=== PATIENT | male | born 1975 | race Caucasian/White ===

== ENCOUNTER 2021-10-13 21:10 | Emergency (ER) | payer OTHER, SELFPAY ==
[2021-10-13 21:10] VITALS: BP 109/77; PULSE 102; RESP 20; TEMP 38.8; O2SAT 94; BMI 35.5
--- NOTE | 2021-10-13 21:35 | RAD_ITS ---
EXAM: XR CHEST, 1 VIEW CLINICAL INDICATION: Positive Covid test with bilateral rales TECHNIQUE: Frontal view of the chest. This report was created using [employer] report generation technology. COMPARISON: None. FINDINGS: LUNGS AND PLEURAL SPACES: Bilateral multilobar pneumonia. No pneumothorax. No effusion. HEART: Unremarkable. Cardiac silhouette not enlarged. MEDIASTINUM: Fullness of the hilar regions may represent reactive adenopathy. No other abnormalities. BONES/JOINTS: Degenerative changes of the spine and acromioclavicular joints. SOFT TISSUES: Unremarkable. RAD/Chest 1 View (Portable) IMPRESSION: Bilateral multilobar pneumonia. Electronically Signed: Syed Ybarra MD at 22:47 EST Tel , Service support ,
--- NOTE | 2021-10-13 21:36 | EX.ED.DYSGE1 ---
HPI History of Present Illness Chief Complaint: Fever Detail of Chief Complaint: Fever, chills, dyspnea on exertion and positive Covid test this past week Informant: patient and spouse/S.O. Onset/Context/Timing Onset: Weeks (Onset of symptoms Thanksgiving. Patient states he had loss of taste and smell that time) Context: Sudden Onset Timing: Continuous Quality: Loss of taste and smell with upper respiratory symptoms, chills, myalgias a Current Severity: Mild Maximum Severity: Severe Worsened by: Nothing Relieved by: Nothing Associated Symptoms Associated Symptoms: Per HPI Narrative Narrative: Patient is a 46-year-old male with no significant past medical history who states his onset of symptoms was Thanksgiving. He states he initially lost taste or smell. He then had rhinorrhea, congestion and sore throat. Last several days he has had elevated temperature with shaking chills and total body aches. He had a Covid test performed at the urgent care which was positive. Patient states he did go to work on Monday. He denies smoking. Denies alcohol use. His spouse is with him. He denies history of VTE. He denies leg pain, swelling discoloration. Prior similar symptoms: No Recent Illness/Hospitalization: Yes PFSH PFSH Medical History no medical history Home Medications dexamethasone [Decadron] 6 mg PO DAILY #7 tab 10/13/21 [Rx Last Taken Unknown] Allergy/AdvReac Type Severity Reaction Status Date / Time No Known Allergies Allergy Verified 10/13/21 21:13 Surgical History no surgical history no surgical history Social History (Updated 10/13/21 @ 21:[address] Gera Zuniga MD) household members: spouse Smoking Status: Never smoker substance use type: does not use ROS ROS ED Constitutional Constitutional ED: Reports chills, fever(s) and sweats; Denies weight loss Eyes Eyes: Denies blurry vision, change in vision or diplopia ENT ENT ED: Reports rhinorrhea and sore throat; Denies ear pain Cardiovascular Cardiovascular: Denies chest pain, orthopnea, palpitations, paroxysmal nocturnal dyspnea or racing heartbeat Respiratory/Chest Respiratory/Chest: Reports cough, dyspnea and dyspnea on exertion; Denies orthopnea, paroxysmal nocturnal dyspnea or sputum Gastrointestinal Gastrointestinal: Reports abdominal pain, diarrhea, nausea and vomiting Genitourinary Genitourinary ED: Denies dysuria, hematuria or urinary frequency Musculoskeletal Musculoskeletal: Reports arthralgias and myalgias Integumentary Denies Abrasions or rash Neurologic Neurologic: Reports headache(s) and weakness; Denies paresthesias Endocrine Endocrinology: Denies polydipsia, polyphagia or polyuria EXAM Physical Exam Const Vital Signs: 10/13/21 21:10 Temperature 101.8 F H Temperature Source Oral Pulse Rate 102 H Respiratory Rate 20 H Blood Pressure 109/77 Blood Pressure Mean 87 Pulse Ox 94 Oxygen Delivery Method Room Air Positive well nourished, well developed and obese General Appearance ED: well developed and NAD; Negative for cyanotic, diaphoretic or pallor Nutritional Appearance: obese HEENT Reports dry mucous membranes Negative for trauma or tenderness Mouth ED: Yes dry mucous membranes Mouth: dry mucous membranes Eyes PERRL and EOMs intact bilaterally General Eye ED: Negative for pale conjunctiva or scleral icterus Neck no lymphadenopathy, supple and no JVD General: Negative for tenderness Chest Wall inspection of chest normal and palpation of chest normal Resp normal respiratory effort Auscultation: rales bilateral base Cardio regular rhythm, S1 normal heart sound, S2 normal heart sound and no murmurs Rate: tachycardic GI normal to inspection, nondistended, normoactive bowel sounds and non-tender Palpation: soft Back/Spine no CVA tenderness Cervical Spine: Negative for cervical spine tenderness Thoracic Spine / Upper Back: Negative for thoracic spinal tenderness or paraspinal muscle tenderness Extremity normal to inspection General Extremety ED: Negative for edema or tenderness General Extremity: Negative for edema Neuro oriented x3, CN's II-XII intact bilaterally and no sensory deficits noted Sensorium / Orientation: alert Motor Exam: strength 5/5 throughout Psych mental status grossly normal Skin no rashes or lesions noted and no wounds General Skin Exam: elasticity normal; Negative for jaundice or pallor MDM MDM MDM Narrative Medical decision making narrative: Patient has symptoms due to Covid. Clinically has pneumonia. Will obtain chest x-ray. Because he also reports vomiting with diarrhea basic metabolic panel was obtained to assess electrolytes and specifically potassium as well as renal function. Patient will receive a 500 cc bolus of normal saline. Lab Data Attestation: I reviewed the patient's lab results. Lab results narrative: CBC and basic metabolic panel are unremarkable except for a glucose of 145. Labs: Laboratory Results - last 24 hr 10/13/21 10/13/21 21:55 21:55 WBC 10.2 RBC 4.11 L Hgb 11.9 L Hct 34.7 L MCV 84.4 MCH 29.0 MCHC 34.3 RDW Std Deviation 36.3 RDW Coeff of Seth 12.0 Plt Count 357 MPV 10.0 Immature Gran % (Auto) 1.200 H Neut % (Auto) 85.8 H Lymph % (Auto) 7.0 L [place] % (Auto) 4.7 Eos % (Auto) 1.1 Baso % (Auto) 0.2 Absolute Neuts (auto) 8.7 H Absolute Lymphs (auto) 0.71 L Nucleated RBC % 0 Sodium 137 Potassium 4.3 Chloride 101 Carbon Dioxide 28.0 Anion Gap 8 BUN 18 Creatinine 1.17 Estim Creat Clear Calc 87.51 Est GFR (MDRD) Af Amer 87 Est GFR (MDRD) Non-Af 72 BUN/Creatinine Ratio 15.4 Glucose 145 H Calcium 8.5 Radiography Chest X-Ray - ED: 1 View (Single view portable chest x-ray reveals peripheral patchy bilateral multilobar infiltrates consistent with Covid. Cardiac silhouette size normal. Perihilar region unremarkable. Osseous structures unremarkable. Chest x-ray is interpreted by me at 2218.) Discharge Plan Triage Chief Complaint: Fever ED Provider: Gera Zuniga Dx/Rx/DC Orders Clinical Impression: Pneumonia due to 2019-nCoV, Acute hyperglycemia Instructions: Coronavirus Disease 2019 (COVID-19): Caring for Yourself or Others, ED Hyperglycemia New Susp Diabetes Prescriptions: New dexamethasone [Decadron] 6 mg tablet 6 mg PO DAILY Qty: 7 RF: 0 Primary Care Provider: Care Physician,No Primary Referrals: Gunnar Ya MD [STAFF PHYSICIAN] - 1-2 Weeks Care Physician,No Primary [Primary Care Provider] - Activity Restrictions/Additional Instructions: Your blood sugar is elevated. This will need to be checked in 1 to 2 weeks. Patient was given an excuse for work until October 18 Disposition Disposition: Home, Self Care
[2021-10-13 22:03] LABS: Absolute Lymphocyte Count 0.71 X10^3/uL (0.83-4.51); Absolute Neutrophil Count 8.7 X10^3/uL (2.0-7.7); Basophil# 0.02 X10^3/uL; Basophil% 0.2 % (0-1); Eosinophil# 0.11 X10^3/uL; Eosinophils% 1.1 % (0-5); Hematocrit 34.7 % (40-54); Hemoglobin 11.9 g/dL (13.0-16.5); Lymphocyte # 0.71 X10^3/ul (0.83-4.51); Mean Corp Hgb Conc 34.3 g/dL (32-36); Mean Corpuscular Volume 84.4 fL (80-94); Monocyte# 0.48 X10^3/uL; Monocyte% 4.7 % (0-10); NRBC Flagged by Analyzer 0 % (0-5); Neutrophil # 8.74 X10^3/uL (2.7-7.7); Neutrophil % 85.8 % (47-70); Platelet Count 357 K/mm3 (150-450); RBC Distribution Width SD 36.3 fl (35.1-43.9); Red Blood Count 4.11 M/mm3 (4.6-6.2); White Blood Count 10.2 K/mm3 (4.4-11.0)
[2021-10-13 22:37] LABS: Anion Gap 8 (5-15); BUN 18 mg/dL (7-18); BUN/Creat Ratio 15.4 RATIO (10-20); Calcium,Total 8.5 mg/dL (8.5-10.1); Chloride 101 mmol/L (98-107); Creatinine, Serum 1.17 mg/dL (0.70-1.30); EST Glomerular Filtration Rate 72 mL/min (>60); Est Glom Filt Rate - Afr Amer 87 mL/min (>60); Estimated Creatinine Clearance 87.51 ml/min; Glucose 145 mg/dL (74-106); Potassium 4.3 mmol/L (3.5-5.1); Sodium Level 137 mmol/L (136-145)
[2021-10-13] MEDS: dexAMETHasone 4 MG Tablet 6 MG PO (23:09)
[2021-10-13 23:13] VITALS: BP 136/72; PULSE 92; RESP 16; O2SAT 97
== END 2021-10-13 23:14 | disposition home or self-care (01) ==
PROVIDERS: Emergency Provider Emergency Medicine
DX: U07.1 COVID-19 (principal); J12.82 Pneumonia due to coronavirus disease 2019; R73.9 Hyperglycemia, unspecified; R11.10 Vomiting, unspecified; R19.7 Diarrhea, unspecified; E66.9 Obesity, unspecified
CPT/HCPCS: 71045; 80048; 85025; 96360; 99285; J7040; A4216

== ENCOUNTER 2021-12-13 09:56 | Outpatient (CLI) | payer OTHER, SELFPAY ==
[2021-12-13 12:19] LABS: Absolute Lymphocyte Count 1.92 X10^3/uL (0.83-4.51); Absolute Neutrophil Count 4.8 X10^3/uL (2.0-7.7); Basophil# 0.05 X10^3/uL; Basophil% 0.7 % (0-1); Eosinophil# 0.15 X10^3/uL; Hematocrit 41.9 % (40-54); Hemoglobin 13.9 g/dL (13.0-16.5); Lymphocyte # 1.92 X10^3/ul (0.83-4.51); Lymphocyte % 25.4 % (19-41); Mean Corp Hgb Conc 33.2 g/dL (32-36); Mean Corpuscular Hgb 28.7 pg (27.0-32.0); Mean Corpuscular Volume 86.6 fL (80-94); Mean Platelet Vol. 10.8 fl (6.2-12.0); Monocyte# 0.65 X10^3/uL; Monocyte% 8.6 % (0-10); NRBC Flagged by Analyzer 0 % (0-5); Neutrophil # 4.78 X10^3/uL (2.7-7.7); POSITIVE COUNT YES; Platelet Count 230 K/mm3 (150-450); RBC Distribution Width CV 13.3 % (11.6-14.6); Red Blood Count 4.84 M/mm3 (4.6-6.2); White Blood Count 7.6 K/mm3 (4.4-11.0)
[2021-12-13 12:31] LABS: Vitamin D,25 Hydroxy 13.1 ng/mL
[2021-12-13 12:35] LABS: ALB/GLOB Ratio 0.9 RATIO (0.9-2.4); AST(SGOT) 18 U/L (15-37); Alanine Aminotransfer ALT/SGPT 24 U/L (16-61); Albumin, Serum 3.5 g/dL (3.2-5.0); Alkaline Phosphatase 80 U/L (45-117); Anion Gap 5 (5-15); BUN 13 mg/dL (7-18); BUN/Creat Ratio 11.4 RATIO (10-20); Chloride 107 mmol/L (98-107); Cholesterol 186 mg/dL (200); Creatinine, Serum 1.14 mg/dL (0.70-1.30); EST Glomerular Filtration Rate 74 mL/min (>60); Est Glom Filt Rate - Afr Amer 89 mL/min (>60); Globulin 3.9 g/dL (2.2-4.2); Glucose 114 mg/dL (74-106); High Density Lipoprotein 36 mg/dL; PSA,Total - Annual Screen 0.82 ng/mL (0.00-4.00); Potassium 4.5 mmol/L (3.5-5.1); Protein, Total 7.4 g/dL (6.4-8.2); Sodium Level 138 mmol/L (136-145); Triglycerides 220 mg/dL; Very Low Density Lipoprotein 44 mg/dL (5-40)
[2021-12-13 12:40] LABS: Hemoglobin A1c 5.7 % (3.8-5.6)
== END 2021-12-13 23:59 | disposition home or self-care (01) ==
LOC: BIMLAB 09:56
PROVIDERS: PCP Internal Medicine; Referring Provider Internal Medicine; Visit Provider Internal Medicine
DX: R73.9 Hyperglycemia, unspecified (principal); E66.3 Overweight; Z13.1 Encounter for screening for diabetes mellitus; Z12.5 Encounter for screening for malignant neoplasm of prostate
CPT/HCPCS: 84153; 36415; 80053; 80061; 82306; 83036; 84443; 85025; G0103

== ENCOUNTER 2025-10-27 13:15 | Observation (INO) | payer OTHER, SELFPAY ==
[2025-10-27] VITALS (13 sets, daily range): BP systolic 102–144; BP diastolic 49–80; PULSE 59–109; RESP 16–18; TEMP 36.8–37.7; O2SAT 92–100; BMI 35.5; BMI 36.6
[2025-10-27 13:32] LABS: Hematocrit 45.8 % (40-54); Hemoglobin 15.4 g/dL (13.0-16.5); Immature Granulocytes Count 0.080 X10^3/uL (0.0-0.0); Mean Corp Hgb Conc 33.6 g/dL (32-36); Mean Corpuscular Volume 86.4 fL (80-94); Mean Platelet Vol. 10.0 fl (6.2-12.0); NRBC Flagged by Analyzer 0 % (0-5); Platelet Count 277 K/mm3 (150-450); RBC Distribution Width CV 12.4 % (11.6-14.6); RBC Distribution Width SD 38.9 fl (35.1-43.9); Red Blood Count 5.30 M/mm3 (4.6-6.2); White Blood Count 19.2 K/mm3 (4.4-11.0)
[2025-10-27 14:31] LABS: AST(SGOT) 18 U/L (<=37); Alanine Aminotransfer ALT/SGPT 21 U/L (<=46); Albumin, Serum 4.8 g/dL (3.5-5.0); Alkaline Phosphatase 70 U/L (40-129); Anion Gap 13 (7-18); BUN 17 mg/dL (4-19); BUN/Creat Ratio 14.7 RATIO (10-20); Calcium,Total 9.7 mg/dL (7.6-11.0); Carbon Dioxide 26.3 mmol/L (20.0-29.0); Chloride 101 mmol/L (96-106); Estimated Creatinine Clearance 103.19 ml/min (50-250); Globulin 3.2 g/dL (2.2-4.2); Glucose 164 mg/dL (70-99); Lipase 22 U/L (13-75); Potassium 4.4 mmol/L (3.5-5.1)
--- NOTE | 2025-10-27 17:13 | EX.ED.DYSGE1 ---
HPI History of Present Illness Chief Complaint: Abd Pain PFSH PFSH Medical History History of COVID-19 History of pneumonia Overweight Home Medications ?Medication ?Instructions ?Recorded ?Last Taken ?Type ibuprofen 200 mg capsule 200 mg PO Q6H PRN pain 07/16/23 Unknown History Allergy/AdvReac Type Severity Reaction Status Date / Time No Known Allergies Allergy Verified 10/27/25 13:19 Family History Other Arthritis Social History (Updated 10/27/25 @ 16:48 by Vicky Jalloh) household members: spouse housing: house Smoking Status: Never smoker alcohol intake: current alcohol intake frequency: holidays/special occasions only substance use type: does not use what type of physical activity do you participate in: none EXAM Physical Exam Const Vital Signs: 10/27/25 13:15 10/27/25 16:47 10/27/25 18:00 Temperature 98.4 F Temperature Source Oral Pulse Rate 59 L 90 Respiratory Rate 16 Blood Pressure 131/79 H 117/67 144/80 H Blood Pressure Mean 96 83 101 Blood Pressure Source Blood Pressure Position Blood Pressure Location Pulse Ox 98 100 Oxygen Delivery Method Room Air 10/27/25 19:35 Temperature 99.1 F Temperature Source Oral Pulse Rate 84 Respiratory Rate 18 Blood Pressure 120/70 Blood Pressure Mean 86 Blood Pressure Source Monitor Blood Pressure Position Semi-Fowlers Blood Pressure Location Right Arm Pulse Ox 95 Oxygen Delivery Method Room Air MDM MDM MDM Narrative Medical decision making narrative: HISTORY OF PRESENT ILLNESS: Chief complaint: Abdominal pain 50-year-old male history of obesity presents with abdominal pain. He states started having diffuse abdominal pain, small caliber stools yesterday. Notes he recently traveled to [place]. Denies new foods or antibiotics. Denies fever but does note vomiting. Denies diarrhea. No history of abdominal surgeries. No urinary complaints REVIEW OF SYSTEMS: Pertinent positives: Abdominal pain, vomiting Pertinent negatives: Fever, urinary complaints PHYSICAL EXAM: Nursing triage notes reviewed, Vital signs reviewed Constitutional: please see mdm HENT: MMM Eyes: Pupils equal round and reactive to light, Extraocular muscles intact Neck: No stridor, no JVD, full neck ROM Lungs: Clear to auscultation, No wheezing or rales. No increased work of breathing, no conversational dyspnea, no accessory muscle use, no nasal flaring. No respiratory distress noted Heart: Regular rate and rhythm, No murmurs, No rubs and No gallops, 2+ distal pulses (radial, femoral, posterior tibial) in all extremities Abdomen: Soft, diffuse TTP but no rigidity, rebound or guarding, no obvious peritoneal signs, no palpable pulsatile abdominal masses, no auscultated abdominal bruit : No CVAT Extremities: No edema Neuro: No new focal neurological deficits, cranial nerves II through XII intact, 5/5 strength in all present extremities. Intact sensation to light touch in all present extremities, 2+ reflexes bilateral patella tendons. Skin: No rash or lesions noted MEDICAL DECISION MAKING: Chief Complaint: please see HPI External records reviewed: Reviewed prior imaging Factors affecting care: n as per [facility] Social determinants of health:Denied alcohol use History obtained from others: none Consults: General surgery (Dr. Winslow) - [facility] Narrative: The patient was initially evaluated by myself 4 hours after initial arrival to the emergency department secondary to poor department conditions including high-volume high acuity Patient was initially hemodynamically stable, afebrile and nontoxic-appearing. Exam with diffuse abdominal tenderness but no obvious peritoneal signs I considered the following differential diagnosis: Abdominal pain differential I obtained broad lab and imaging workup to further determine if the patient was suffering from a life-threatening etiology. Triage labs were placed including CBC, CMP, lipase. These were reviewed Initially treat the patient with 1 L normal saline, 4 mg of IV Zofran, 15 mg IV Toradol and added a CT scan to triage workup ALL IMAGES (IF OBTAINED) HAVE BEEN PERSONALLY REVIEWED AND INTERPRETED BY MYSELF. CBC with concern for leukocytosis consistent with systemic elation, no anemia or thrombocytopenia noted CMP without evidence of acute kidney injury, significant electrolyte abnormality, anion gap to suggest end organ hypo-perfusion, no evidence of metabolic acidosis with a normal bicarbonate, no evidence of hepatobiliary obstructive pathology. Lipase is wnl indicating no pancreatic inflammation. CT scan revealed shows concerning signs of acute appendicitis. Will consult general surgeon Also recommend admission to the OR The patient and/or family, caregivers express understanding. The patient and/or family, caregivers agrees with the plan. Shared decision making: I will have a discussion with the patient and or visitors regarding risk/benefits of further testing or admission. They will be made aware of of the risk/benefits inherent in this decision they will be given the opportunity to voice understanding. Total critical care time today provided was at least 35 minutes. This excludes separately billable procedures. Critical care time (if documented) is secondary to the patient having high probability of clinically significant/life threatening deterioration in the patient's condition which required my urgent intervention. Impression: 1. Acute abdominal pain 2. Nausea and vomiting 3. Acute appendicitis Dispo: Admit to the OR This note was generated with [employer] dictation software. It may contain incorrect words, spelling, and punctuation that were not noted in review of the chart prior to signing. Lab Data Labs: Laboratory Results - last 24 hr 10/27/25 13:26 WBC 19.2 H RBC 5.30 Hgb 15.4 Hct 45.8 MCV 86.4 MCH 29.1 MCHC 33.6 RDW Std Deviation 38.9 RDW Coeff of Seth 12.4 Plt Count 277 MPV 10.0 Immature Gran % (Auto) 0.400 Neut % (Auto) 90.6 H Lymph % (Auto) 4.4 L [place] % (Auto) 4.4 Eos % (Auto) 0.0 Baso % (Auto) 0.2 Absolute Neuts (auto) 17.4 H Absolute Lymphs (auto) 0.85 Nucleated RBC % 0 Sodium 140 Potassium 4.4 Chloride 101 Carbon Dioxide 26.3 Anion Gap 13 BUN 17 Creatinine 1.12 Estim Creat Clear Calc 103.19 Est GFR (MDRD) Non-Af 81 BUN/Creatinine Ratio 14.7 Glucose 164 H Calcium 9.7 Total Bilirubin 0.73 AST 18 ALT 21 Alkaline Phosphatase 70 Total Protein 7.9 Albumin 4.8 Globulin 3.2 Albumin/Globulin Ratio 1.5 Lipase 22 Radiography Diagnostic Testing: Clinical Impression(s) from Imaging Studies Abdomen/Pelvis CT 10/27/25 17:29 IMPRESSION: Acute appendicitis. Reading [facility] [place] Discharge Plan Triage Chief Complaint: Abd Pain ED Provider: Elijah Carlos Dx/Rx/DC Orders Primary Care Provider: Care Physician,No Primary
--- NOTE | 2025-10-27 17:29 | CT_ITS ---
PROCEDURE: ABDOMEN/PELVIS W IV CONT ONLY 10/27/2025 REASON FOR EXAM: ABDOMINAL PAIN TECHNIQUE: Procedure Code: [id number] Modality: CT Procedure: ABDOMEN/PELVIS W IV CONT ONLY Coronal and Sagittal reconstruction series were provided. CONTRAST: Isovue-300 VOLUME: 99 mL One or more dose reduction techniques were used (e.g., Automated exposure control, adjustment of the mA and/or kV according to patient size, use of iterative reconstruction technique. RADIATION DOSE SUMMARY: CTDlvol: 24+ 23 mGy DLP: 1564 mGycm FINDINGS: Bibasilar linear opacities favoring atelectasis versus scar. Peripheral soft tissues unremarkable. No acute osseous abnormalities. Mild atherosclerosis. Normal caliber the abdominal aorta. No suspicious lymphadenopathy. The liver, gallbladder, pancreas, spleen, adrenals are unremarkable. Right kidney simple cyst. No hydroureteronephrosis. The urinary bladder is unremarkable. A few scattered colonic diverticuli without surrounding inflammatory changes. Appendiceal dilation measuring up to 17 mm with a couple internal appendicoliths. There is surrounding fat stranding. CT/Abdomen/Pelvis W IV Cont ONLY IMPRESSION: Acute appendicitis. Reading Location: [facility] [place]
[2025-10-27] MEDS: 0.9% Normal Saline (1000mL) 1,000 ML 999 ML IV (17:45)
[2025-10-27] MEDS: Piperacil/Tazobactam 4.5 GM in 0.9% Normal Saline (100mL MB+) 100 ML IV (18:45)
--- NOTE | 2025-10-27 19:27 | HP.PCM_ITS ---
HPI - General General Date of Admission: 10/27/25 Chief Complaint: Acute onset abdominal pain HPI Narrative SHIV TYSON, is a 50 M who presents to [facility] with complaints of acute onset abdominal pain with associated nausea, vomiting, and change in stool caliber. He notes that he recently traveled to [place] (yesterday) and has done some more eating out. He states that he simply did not feel well yesterday and had complained to his of some chills when they were in their hotel room despite the temperature being comfortable to her. He states that he was initially convinced he was just constipated because his stools had come out as ribbons (he confirmed this was nonbloody). However, approximately 1230 to 1:00 in the morning he woke with severe abdominal pain and when this continued he decided to seek evaluation. He denies any previous experience of such pain. Patient's ED evaluation included CBC which showed a leukocytosis of 19.2. CT imaging of the abdomen pelvis was obtained and found evidence for acute appendicitis with a 1.7 cm dilated appendix with associated appendicoliths and stranding. Patient admits to not frequently visiting a healthcare provider but denies any known diagnoses. He states that he has been making intentional effort at trying to eat healthier. He denies any prior surgical history. He also denies any prior colonoscopy. Patient has no family history for colon cancer, inflammatory bowel disease, or diverticulitis. [facility] Medical History History of COVID-19 History of pneumonia Overweight Home Medications ?Medication ?Instructions ?Recorded ?Last Taken ?Type ibuprofen 200 mg capsule 200 mg PO Q6H PRN 07/16/23 U nknown History Allergy/AdvReac Type Severity Reaction Status Date / Time No Known Allergies Allergy Verified 10/27/25 13:19 Family History Other Arthritis Social History (Updated 10/27/25 @ 16:48 by Vicky Jalloh) household members: spouse housing: house Smoking Status: Never smoker alcohol intake: current alcohol intake frequency: holidays/special occasions only substance use type: does not use what type of physical activity do you participate in: none Patient's Goals Of Care . What would you like to achieve or improve as a result of your hospital stay?: T his question was not posed to patient directly but I suppose his appendicitis Vital Signs Vital Signs Vital Signs: 10/27/25 13:15 10/27/25 16:47 10/27/25 18:00 Temperature 98.4 F Temperature Source Oral Pulse Rate 59 L 90 Respiratory Rate 16 Blood Pressure 131/79 H 117/67 144/80 H Blood Pressure Mean 96 83 101 Pulse Ox 98 100 Oxygen Delivery Method Room Air Weight Weight: 255 lb Body Mass Index (BMI) 35.5 Physical Exam Const alert, oriented x3 and well nourished Constitutional Narrative: Appears in mild discomfort General Appearance: cooperative Resp normal respiratory effort GI GI Narrative: Obese, no scars, small umbilical hernia visible. Nondistended, soft, tender focally over McBurney's point. Negative Rovsing's. Negative obturator. Positive psoas sign. Results Lab / Micro Data 10/27/25 13:26 10/27/25 13:26 Labs: Laboratory Results - last 24 hr 10/27/25 13:26: WBC 19.2 H, RBC 5.30, Hgb 15.4, Hct 45.8, MCV 86.4, MCH 29.1, MCHC 33.6, RDW Std Deviation 38.9, RDW Coeff of Seth 12.4, Plt Count 277, MPV 10.0, Immature Gran % (Auto) 0.400, Neut % (Auto) 90.6 H, Lymph % (Auto) 4.4 L, [place] % (Auto) 4.4, Eos % (Auto) 0.0, Baso % (Auto) 0.2, Absolute Neuts (auto) 17.4 H, Absolute Lymphs (auto) 0.85, Nucleated RBC % 0, Sodium 140, Potassium 4.4, Chloride 101, Carbon Dioxide 26.3, Anion Gap 13, BUN 17, Creatinine 1.12, Estim Creat Clear Calc 103.19, Est GFR (MDRD) Non-Af 81, BUN/Creatinine Ratio 14.7, Glucose 164 H, Calcium 9.7, Total Bilirubin 0.73, AST 18, ALT 21, Alkaline Phosphatase 70, Total Protein 7.9, Albumin 4.8, Globulin 3.2, Albumin/Globulin Ratio 1.5, Lipase 22 Imaging Radiology Impression Abdomen/Pelvis CT 10/27/25 17:29 IMPRESSION: Acute appendicitis. Reading Location: [facility] Assessment & Plan Assessment/Plan (1) Acute appendicitis: PLAN: Patient is 50-year-old male who presents just inside 24 hours of general malaise and acute onset abdominal pain beginning early this morning. ED workup consistent with diagnosis of acute appendicitis. Moreover, CT imaging shows a significantly dilated appendix at 1.7 cm with several associated appendicoliths. I informed patient that this latter feature puts him at increased risk for perforation and thus it is my recommendation to proceed emergently for surgical appendectomy. Laparoscopic appendectomy was described in detail. Patient provided his verbal consent. Operating team was notified via the household cook as well as anesthesia. Patient is n.p.o. appropriate. He has been administered IV Zosyn empirically by emergency medicine. Postoperatively we will plan to admit patient to medical surgical floor given the late hour for observation and hopefully be able to discharge to home in the morning. Patient was also advised that I would recommend a colonoscopy in approximately 6 weeks?especially if his bowel habits remain irregular?as he denies any prior exam. He confirms hearing of this recommendation but not necessarily agreement. I stated at a minimum I would strongly recommend he pursue Cologuard testing. For now we will proceed to the operating room for laparoscopic appendectomy. Allan Winslow MD General Surgery Endocrine Surgery Pager: [facility] [address] [place] [address], [address] [place], [place] [id number] Office: [phone] Charges/Coding Visit Charges Inpatient E&M: 23458 Init Hosp L2
--- NOTE | 2025-10-27 20:20 | APP_PTH ---
PATIENT: SHIV TYSON LOC: [facility]3 U#:[id number] AGE/SX: 50/M ROOM: AK318 RE10/27/[address]: Dr. Allan Winslow MD : 1975 BED: 1 DIS: 10/28/2025 SPEC #: [id number] RECD: 10/28/25 08:03 STATUS: ANITA HAGAN #: [id number] BLANCA: 10/27/25 20:[address]: Allan Winslow DEPT: SURGICAL PATHOLOGY RECD BY: Sailaja Bassett ENTERED: 10/28/25 13:47 SP TYPE: APPENDIX OTHR DR: No Primary Care Phys Tissues: Appendix, NOS Procedures: Surgery Specimen Level III HEADER OPERATION: Laparoscopic appendectomy PRE-OP DIAGNOSIS: Acute appendicitis TISSUE SUBMITTED: A- Appendix MICROSCOPIC DIAGNOSIS A. Appendix, laparoscopic appendectomy: - Acute appendicitis. - Fecalith x2. MICROSCOPIC DESCRIPTION Slides are reviewed. GROSS DESCRIPTION A. Received in formalin labeled with the patient's name and date of . Designated as appendix is a 7.4 x 1.2 cm floyd-pink to red, diffusely congested appendix with copious amount of attached mesoappendix; there is patchy serosal exudate spanning to the underlying mesoappendix. The margin is inked black and shaved. Sectioning reveals 2 fecaliths and hemorrhagic luminal contents. The mucosa is dark red-brown, diffusely congested and granular. [employer] Up [employer] sections are submitted in 2 cassettes as follows: A1: Margin, cross-sectionA2: Distal tip SD 10/28/2025 CPT:78102
--- NOTE | 2025-10-27 20:31 | PCM.PRE.AN2 ---
ASA Classification* ASA Classification ASA Classification: 2 and E Assessment & Plan Anesthesia* Anesthesia Assessment Anesthesia Assessment: Discussed sedation and/or anesthesia options, risks, benefits, and alternatives with patient/parents/legal guardian/POA. Questions invited. The patient/parents/legal guardian/POA seems to understand and agrees to proceed with anesthesia plan. Reviewed the physical assessment, medical history, allergy history and patient home medications list prior to surgery/procedure/anesthetic and documented any changes. Performed airway and anesthesia risk assessments. Anesthesia Type Anesthesia Type: General Anesthesia Focused Assessment* Temperature: 99.1 F Pulse Rate: 84 Blood Pressure: 120/70 Respiratory Rate: 18 Pulse Ox: 95 Airway Assessment Mouth opens: >3 cm Mallampati Score: II Labs Anesthesia Preop lab: CBC WBC, (4.4-11.0) 19.2 K/mm3 H Today, 13:26 RBC, (4.6-6.2) 5.30 M/mm3 Today, 13:26 Hgb, (13.0-16.5) 15.4 g/dL Today, 13:26 Hct, (40-54) 45.8 % Today, 13:26 Plt Count, (150-450) 277 K/mm3 Today, 13:26 CHEMISTRY Potassium, (3.5-5.1) 4.4 mmol/L Today, 13:26 Sodium, (135-145) 140 mmol/L Today, 13:26 BUN, (4-19) 17 mg/dL Today, 13:26 Creatinine, (0.70-1.20) 1.12 mg/dL Today, 13:26 Glucose, (70-99) 164 mg/dL H Today, 13:26 TSH, (0.358-3.74) 1.00 uIU/mL 12/13/21, 09:57 COAG Pre-Assessment Diagnosis/Proposed Procedure Planned Operative Procedure(s): Appendectomy Anesthesia History 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 When Was Last Pacemaker Check QUESTION #4 FULL TEXT: You/Your Family Experience fever (hyperthermia) with Anesthesia Last Oral Intake Last Oral intake: Last Oral Intake NPO since Meds taken in AM with sips of water? Meds patient instructed to take am of surgery PONV PONV - telegraph office telephone clerk: PONV - telegraph office telephone clerk Female HX of Motion Sickness HX of N/V After Surgery Non-Smoker Duration of Surgery greater than 60 minutes Number of Risk Factors PONV Score Height & Weight Height & Weight: Anesthesia: Height & Weight Height 5 ft 11 in 10/27/25 19:35 Weight: 115.666 kg 10/27/25 19:35 Body Mass Index (BMI) 35.5 10/27/25 19:35 Respiratory Assessment Respiratory Assessment - telegraph office telephone clerk: Respiratory Tract Infection Hx - telegraph office telephone clerk Hx Respiratory Tract Infection No 10/27/25 19:35 STOP Sleep Apnea STOP Sleep Apnea - telegraph office telephone clerk: STOP Sleep Apnea - telegraph office telephone clerk Hx Hypertension No 10/27/25 19:35 Hx Sleep Apnea No 10/27/25 19:35 CPAP BIPAP Do you snore loudly (louder Yes 10/27/25 19:35 than talking or can be heard Do you often feel tired/ No 10/27/25 19:35 fatigued/ sleepy during daytime? Has anyone observed you stop Yes 10/27/25 19:35 breathing during sleep? STOP Results Positive 10/27/25 19:35 QUESTION #5 FULL TEXT : Do you snore loudly (louder than talking or can be heard through closed doors)? Tobacco Use History Tobacco Use History - telegraph office telephone clerk: Tobacco Use History - telegraph office telephone clerk Tobacco Use Smoking Status Never smoker 10/27/25 16:47 Hx Tobacco Use Years Smoking Packs Smoked per Day Smoking Cessation Date was within the last 15 years Hx Smoking Cessation Date Hx Smoking Cessation Counseling Hematologic Medial History Hematologic Hx - telegraph office telephone clerk: Hematologic Medical Hx - cap blocker Hx of Blood Transfusion Hx of Transfusion in last 3 Months Date of Last Transfusion (if within last 3 months) Ever experience any problems with transfusion(s)? Specify any problems Hx of Preganancy in last 3 Months Nurse Filling Out Transfusion & Questions: Date: Time: Patient unable to answer at this time (ie. confused, unrespo /Reproduction History /Reproductive History - telegraph office telephone clerk: /Reproductive Hx- telegraph office telephone clerk Hx Now No 10/27/25 19:35 Gestational Age (in weeks): EDC: Hx Hx Para Hx Section SAB No 10/27/25 19:35 Does the father of the baby or his family experience fever w Father of the baby Malignant Hypertension history comment Active Medications Active Medications: Current Medications Generic Name Dose Route Start Last Admin Trade Name Freq PRN Reason Stop Dose Admin Morphine Sulfate 4 mg 10/27/25 18:21 Morphine 4 Mg/Ml Syringe IV PRN PRN severe pain PFSH Medical History History of COVID-19 History of pneumonia Overweight Home Medications ?Medication ?Instructions ?Recorded ?Last Taken ?Type ibuprofen 200 mg capsule 200 mg PO Q6H PRN pain 07/16/23 Unknown History Allergy/AdvReac Type Severity Reaction Status Date / Time No Known Allergies Allergy Verified 10/27/25 13:19 Family History Other Arthritis Social History (Updated 10/27/25 @ 16:48 by Vicky Jalloh) household members: spouse housing: house Smoking Status: Never smoker alcohol intake: current alcohol intake frequency: holidays/special occasions only substance use type: does not use what type of physical activity do you participate in: none Review of Systems (Anesthesia) ROS Narrative System reviewed and no additional complaints, except as documented.
[2025-10-27] MEDS: Midazolam 2 MG/2 ML Syringe IV (20:39)
[2025-10-27] MEDS: Lidocaine 1% (5 ml sdv) 5 ML Vial 4 ML IV (20:42)
[2025-10-27] MEDS: fentaNYL 100 MCG/2 ML Ampul IV (20:43)
--- OUTSIDE RECORDS SUMMARY | 2025-10-27 20:59 | XMS RPT_ITS | CCD ---
Author Organization [facility] Results Test Name Value Interpretation Reference Range Facility CBC W/Diff, Automatedon 02-0 -2021 Absolute Lymph 1.92 X10 3/uL Normal 0.83-4.51 [facility] Comment on above: Performed By: #### L 500.4100, L500.4050, L501.9985, L506.1000, L100.0100, L501.9910, L501.9520 #### [facility] [address] [place], [address] Absolute Neut 4.8 X10 3/uL Normal 2.0-7.7 [facility] Comment on above: Performed By: #### L 500.4100, L500.4050, L501.9985, L506.1000, L100.0100, L501.9910, L501.9520 #### [facility] [address] [place], [address] Basophils/100 WBC (Bld) 0.7 % Normal 0-1 [facility] Comment on above: Performed By: #### L 500.4100, L500.4050, L501.9985, L506.1000, L100.0100, L501.9910, L501.9520 #### [facility] [address] [place], [address] Eosinophils/100 WBC (Bld) 2.0 % Normal 0-5 [facility] Comment on above: Performed By: #### L 500.4100, L500.4050, L501.9985, L506.1000, L100.0100, L501.9910, L501.9520 #### [facility] [address] [place], [address] Erythrocyte distribution width (RBC) [Ratio] 13.3 % Normal 11.6-14.6 [facility] Comment on above: Performed By: #### L 500.4100, L500.4050, L501.9985, L506.1000, L100.0100, L501.9910, L501.9520 #### [facility] [address] [place], [address] Hematocrit (Bld) [Volume fraction] 41.9 % Normal 40-54 [facility] Comment on above: Performed By: #### L 500.4100, L500.4050, L501.9985, L506.1000, L100.0100, L501.9910, L501.9520 #### [facility] [address] [place], [address] Hemoglobin (Bld) [Mass/Vol] 13.9 g/dL Normal 13.0-16.5 [facility] Comment on above: Performed By: #### L 500.4100, L500.4050, L501.9985, L506.1000, L100.0100, L501.9910, L501.9520 #### [facility] [address] [place], [address] IG% 0.300 Normal 0.0-0.9 [facility] Comment on above: Result Comment: IG% - Immature Granulocytes (promyelocytes, myelocytes and metamyelocytes) > 1% indicates that a LEFT SHIFT is Present. Performed By: #### L 500.4100, L500.4050, L501.9985, L506.1000, L100.0100, L501.9910, L501.9520 #### [facility] [address] [place], [address] Lymphocytes/100 WBC (Bld) 25.4 % Normal 19-41 [facility] Comment on above: Performed By: #### L 500.4100, L500.4050, L501.9985, L506.1000, L100.0100, L501.9910, L501.9520 #### [facility] [address] [place], [address] MCH (RBC) [Entitic mass] 28.7 pg Normal 27.0-32.0 [facility] Comment on above: Performed By: #### L 500.4100, L500.4050, L501.9985, L506.1000, L100.0100, L501.9910, L501.9520 #### [facility] [address] [place], [address] MCHC (RBC) [Mass/Vol] 33.2 g/dL Normal 32-36 [facility] Comment on above: Performed By: #### L 500.4100, L500.4050, L501.9985, L506.1000, L100.0100, L501.9910, L501.9520 #### [facility] [address] [place], [address] MCV (RBC) [Entitic vol] 86.6 fL Normal 80-94 [facility] Comment on above: Performed By: #### L 500.4100, L500.4050, L501.9985, L506.1000, L100.0100, L501.9910, L501.9520 #### [facility] [address] [place], [address] Monocytes/100 WBC (Bld) 8.6 % Normal 0-10 [facility] Comment on above: Performed By: #### L 500.4100, L500.4050, L501.9985, L506.1000, L100.0100, L501.9910, L501.9520 #### [facility] [address] [place], [address] Neutrophils/100 WBC (Bld) 63.0 % Normal 47-70 [facility] Comment on above: Performed By: #### L 500.4100, L500.4050, L501.9985, L506.1000, L100.0100, L501.9910, L501.9520 #### [facility] [address] [place], [address] Nucleated RBC (Bld) [#/Vol] 0 10*3/uL Normal 0-5 [facility] Comment on above: Performed By: #### L 500.4100, L500.4050, L501.9985, L506.1000, L100.0100, L501.9910, L501.9520 #### [facility] [address] [place], [address] Platelet mean volume (Bld) [Entitic vol] 10.8 fL Normal 6.2-12.0 [facility] Comment on above: Performed By: #### L 500.4100, L500.4050, L501.9985, L506.1000, L100.0100, L501.9910, L501.9520 #### [facility] [address] [place], [address] Platelets (Bld) [#/Vol] 230 10*3/uL Normal 150-450 [facility] Comment on above: Performed By: #### L 500.4100, L500.4050, L501.9985, L506.1000, L100.0100, L501.9910, L501.9520 #### [facility] [address] [place], [address] RBC (Bld) [#/Vol] 4.84 10*6/uL Normal 4.6-6.2 [facility] Comment on above: Performed By: #### L 500.4100, L500.4050, L501.9985, L506.1000, L100.0100, L501.9910, L501.9520 #### [facility] [address] [place], [address] RDW SD 42.0 fl Normal 35.1-43.9 [facility] Comment on above: Performed By: #### L 500.4100, L500.4050, L501.9985, L506.1000, L100.0100, L501.9910, L501.9520 #### [facility] [address] [place], [address] WBC (Bld) [#/Vol] 7.6 10*3/uL Normal 4.4-11.0 [facility] Comment on above: Performed By: #### L 500.4100, L500.4050, L501.9985, L506.1000, L100.0100, L501.9910, L501.9520 #### [facility] [address] [place], [address] Comprehensive Metabolic Prof mton 12-13-2021 Albumin [Mass/Vol] 3.5 g/dL Normal 3.2-5.0 [facility] Comment on above: Performed By: #### L 500.4100, L500.4050, L501.9985, L506.1000, L100.0100, L501.9910, L501.9520 #### [facility] [address] [place], [address] Albumin/Globulin [Mass ratio] 0.9 {ratio} Normal 0.9-2.4 [facility] Comment on above: Performed By: #### L 500.4100, L500.4050, L501.9985, L506.1000, L100.0100, L501.9910, L501.9520 #### [facility] [address] [place], [address] ALK P 80 U/L Normal 45-117 [facility] Comment on above: Performed By: #### L 500.4100, L500.4050, L501.9985, L506.1000, L100.0100, L501.9910, L501.9520 #### [facility] [address] [place], [address] ALT [Catalytic activity/Vol] 24 U/L Normal 16-61 [facility] Comment on above: Performed By: #### L 500.4100, L500.4050, L501.9985, L506.1000, L100.0100, L501.9910, L501.9520 #### [facility] [address] [place], [address] AST [Catalytic activity/Vol] 18 U/L Normal 15-37 [facility] Comment on above: Performed By: #### L 500.4100, L500.4050, L501.9985, L506.1000, L100.0100, L501.9910, L501.9520 #### [facility] [address] [place], [address] Bilirubin [Mass/Vol] 0.70 mg/dL Normal 0.20-1.00 [facility] Comment on above: Result Comment: For patients on eltrombopag therapy, use of Dimension [place] TBIL is not recommended. Performed By: #### L 500.4100, L500.4050, L501.9985, L506.1000, L100.0100, L501.9910, L501.9520 #### [facility] [address] [place], [address] BUN/CRE 11.4 RATIO Normal 10-20 [facility] Comment on above: Performed By: #### L 500.4100, L500.4050, L501.9985, L506.1000, L100.0100, L501.9910, L501.9520 #### [facility] [address] [place], [address] CA,Total 9.0 mg/dL Normal 8.5-10.1 [facility] Comment on above: Performed By: #### L 500.4100, L500.4050, L501.9985, L506.1000, L100.0100, L501.9910, L501.9520 #### [facility] [address] [place], [address] Chloride [Moles/Vol] 107 mmol/L Normal 98-107 [facility] Comment on above: Performed By: #### L 500.4100, L500.4050, L501.9985, L506.1000, L100.0100, L501.9910, L501.9520 #### [facility] [address] [place], [address] CO2 [Moles/Vol] 26.0 mmol/L Normal 21.0-32.0 [facility] Comment on above: Performed By: #### L 500.4100, L500.4050, L501.9985, L506.1000, L100.0100, L501.9910, L501.9520 #### [facility] [address] [place], [address] Creatinine [Mass/Vol] 1.14 mg/dL Normal 0.70-1.30 [facility] Comment on above: Result Comment: The validity of the calculated GFR GFRAA in patients over 70 years has not been determined. Clinical correlation is essential. Performed By: #### L 500.4100, L500.4050, L501.9985, L506.1000, L100.0100, L501.9910, L501.9520 #### [facility] [address] [place], [address] EST GFR - AA 89 mL/min Normal >60 [facility] Comment on above: Result Comment: Afri can Moroccan GFR Calc Performed By: #### L 500.4100, L500.4050, L501.9985, L506.1000, L100.0100, L501.9910, L501.9520 #### [facility] [address] [place], [address] GAP 5 Normal 5-15 [facility] Comment on above: Performed By: #### L 500.4100, L500.4050, L501.9985, L506.1000, L100.0100, L501.9910, L501.9520 #### [facility] [address] [place], [address] GFR/1.73 sq M.predicted among non-blacks MDRD (S/P/Bld) [Vol rate/Area] 74 mL/min/{1.73_m2} Normal >60 [facility] Comment on above: Result Comment: Non- GFR Calc Performed By: #### L 500.4100, L500.4050, L501.9985, L506.1000, L100.0100, L501.9910, L501.9520 #### [facility] [address] [place], [address] Globulin (S) [Mass/Vol] 3.9 g/dL Normal 2.2-4.2 [facility] Comment on above: Performed By: #### L 500.4100, L500.4050, L501.9985, L506.1000, L100.0100, L501.9910, L501.9520 #### [facility] [address] [place], [address] Glucose [Mass/Vol] 114 mg/dL High 74-106 [facility] Comment on above: Result Comment: Fast ing Glucose result from 100 to 125 mg/dL suggests IMPAIRED HOMEOSTASIS per A.D.A. criteria. Performed By: #### L 500.4100, L500.4050, L501.9985, L506.1000, L100.0100, L501.9910, L501.9520 #### [facility] [address] [place], [address] Potassium [Moles/Vol] 4.5 mmol/L Normal 3.5-5.1 [facility] Comment on above: Performed By: #### L 500.4100, L500.4050, L501.9985, L506.1000, L100.0100, L501.9910, L501.9520 #### [facility] [address] [place], [address] Sodium [Moles/Vol] 138 mmol/L Normal 136-145 [facility] Comment on above: Performed By: #### L 500.4100, L500.4050, L501.9985, L506.1000, L100.0100, L501.9910, L501.9520 #### [facility] [address] [place], [address] T PROT 7.4 g/dL Normal 6.4-8.2 [facility] Comment on above: Performed By: #### L 500.4100, L500.4050, L501.9985, L506.1000, L100.0100, L501.9910, L501.9520 #### [facility] [address] [place], [address] Urea nitrogen [Mass/Vol] 13 mg/dL Normal 7-18 [facility] Comment on above: Performed By: #### L 500.4100, L500.4050, L501.9985, L506.1000, L100.0100, L501.9910, L501.9520 #### [facility] [address] [place], [address] Hemoglobin A1con 12-13-2021 HbA1c (Bld) [Mass fraction] 5.7 % High 3.8-5.6 [facility] Comment on above: Result Comment: Norm al < 5.7 % Prediabetic 5.7 - 6.4 % Diabetic >or= 6.5 % Please note range changes. Performed By: #### L 500.4100, L500.4050, L501.9985, L506.1000, L100.0100, L501.9910, L501.9520 #### [facility] [address] [place], [address] Internal Medicine Office Vis iton 12-13-2021 Internal Medicine Office Visit [facility] [address] [place] [address] [place] [address] OFFICE VISIT Date of Service: 12/13/21 MR#: [id number] Acct: [id number] Name: SHIV TYSON Rep #: [id number] : 1975 Provider: Dr. Vilma ramos MD Age/Sex: 46/M [place] [facility] [place] Status: Signed Intake Vital Signs 12/13/21 08:51 Height 5 ft 11 in Weight: 259 lb BMI 36.1 BP 120/82 H Blood Pressure Location Lt brachial Position Sitting Respiration 16 Pulse 59 L Pulse Source Monitor Temp 97.5 F L Temp Source Temporal Pulse Oximetry (%) 94 Oxygen Delivery Method room air Intake Visit Reasons: est care Chief Complaint: Establish care Is patient in pain?: No Allergies No Known Allergies Allergy (Verified 12/13/21 08:56) [facility] Medical History (Updated 12/13/21 @ 11:[address] Vilma Potts MD) History of COVID-19 History of pneumonia Overweight Family History (Updated 12/13/21 @ 08:58 by Kira Iraheta) Other Arthritis Social History (Updated 12/13/21 @ 08:58 by Kira Iraheta) household members: spouse Smoking Status: Never smoker alcohol intake: current alcohol intake frequency: holidays/special occasions only substance use type: does not use what type of physical activity do you participate in: none HPI HPI Chief Complaint: Establish care Details: SHIV TYSON, is a 46 M who presents to the office today to establish medical care/wellness visit. Patient is a pleasant 46-year-old male. He has no longstanding medical problems takes no routine long-term medications. Originally from [place], has lived in this area, [place], for about 11 years he states. 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 He is out Monday through Monday, and sleeps in his truck when he is on the road. He generally speaking, drives during the day and does his deliveries and sleeps at night. At times he is done better he states with meals on the road, sometimes taking some foods with him but self-admittedly mostly eats 1 meal a day and at a much heavier meal, often late evening prior to going to bed. Said a number of years ago he was more physically active, doing some running but he has not been doing that for a while. He is thinking about taking bicycle with in the future, as there are several stops where he feels he could probably safely do bicycle riding in the evenings. He is a lifelong non-smoker. Rare alcohol use. No strong family medical history of any medical issues. He did have COVID-19, towards the end of September and early October. He developed pneumonia. He did come the emergency room where he was identified to have bilateral patchy infiltrates and was given Decadron for home. He gradually improved. He is back to his routine at this point in time. He did have some leg swelling with that and still has perhaps a trace swelling in his legs he states and some anterior reddy tenderness. He also has a scalp lump he wanted looked at. Its been present for many years. Not causing any issues he states. He does cut his own hair and this does not impede it. Has never bled. Review of systems per chart. Physical exam. Vital signs on chart. EOMI. PERRLA. Sclera are clear. TMs are unremarkable with normal light reflexes. Canals are unremarkable. Posterior pharynx is unremarkable. Good dentition. No cervical or supraclavicular lymph nodes enlarged or tender. No clear thyromegaly. No thyroid nodules readily palpable. Lungs are without wheeze, rhonchi, rales. No E/A changes are heard. Heart is regular. Not tachycardic. No clear murmur, rub, or gallop is identified. The abdomen is soft, obese, protuberant. Bowel sounds are present. Nontender nondistended abdomen. No clear palpable masses in the abdomen. Very trace lower leg edema, symmetric. Cranial nerve examination 2 through 12 are grossly unremarkable nonlateralizing. Deep tendon reflexes are 2/4 and symmetric at the bicep, tricep, Achilles, patella. No ankle clonus. No obvious rashes. No obvious significant skin lesions are identified. He does have a sebaceous skin cyst, scalp, right parietal. ROS Const Constitutional: No body ache, chills, excessive sweating, fatigue, fever(s), frequent falls, headache(s), snoring, weakness, weight change, sleep problems or change in appetite Eyes Eyes: No blurry vision, change in vision, eye pain or Light sensitivity ENT ENT: No abnormal hearing, ear or mastoid pain, tinnitus, nasal congestion, headache(s), neck pain or sore throat Resp Respiratory: No cough, shortness of breath, snoring or wheezing Cardio Cardiology: No chest pain at rest, chest pain with exertion, excessive sweating, shortness of breath, dyspnea on exertion, lightheadedness, orthopnea or palpitations Gastro GI: No abdominal pain, change in bowel habits, constip (more content not included)... Normal [facility] Lipid Profileon 12-13-2021 Cholesterol [Mass/Vol] 186 mg/dL Normal 200 [facility] Comment on above: Result Comment: <200 mg/dL Desirable 200-240 mg/dL Borderline >240 mg/dL High Risk Performed By: #### L 500.4100, L500.4050, L501.9985, L506.1000, L100.0100, L501.9910, L501.9520 #### [facility] [address] [place], [address] Cholesterol in HDL [Mass/Vol] 36 mg/dL Low [facility] Comment on above: Result Comment: The drugs N-Acetylcysteine and Metamizole may falsely depress this assay. Reference Range HDL <40 mg/dL Low HDL Cholesterol HDL >or= 60 mg/dL High HDL Cholesterol Performed By: #### L 500.4100, L500.4050, L501.9985, L506.1000, L100.0100, L501.9910, L501.9520 #### [facility] [address] [place], [address] Cholesterol in LDL [Mass/Vol] 106 mg/dL Normal 0-130 [facility] Comment on above: Performed By: #### L 500.4100, L500.4050, L501.9985, L506.1000, L100.0100, L501.9910, L501.9520 #### [facility] [address] [place], [place], [id number] Cholesterol in VLDL [Mass/Vol] 44 mg/dL High 5-40 [facility] Comment on above: Performed By: #### L 500.4100, L500.4050, L501.9985, L506.1000, L100.0100, L501.9910, L501.9520 #### [facility] [address] [place], [place], [id number] ([phone]) Triglyceride [Mass/Vol] 220 mg/dL High [facility] Comment on above: Result Comment: The drugs N-Acetylcysteine and Metamizole may falsely depress this assay. Serum Triglycerides Reference Interval Normal <150 mg/dL Borderline high 150 - 199 mg/dL High 200 - 499 mg/dL Very High > or = 500 mg/dL Performed By: #### L 500.4100, L500.4050, L501.9985, L506.1000, L100.0100, L501.9910, L501.9520 #### [facility] [address] [place], [place], [id number] PSA,Total - Annual Screenon 12-13-2021 PSA,TOT SCREEN 0.82 ng/mL Normal 0.00-4.00 [facility] Comment on above: Result Comment: This test was performed using the TPSA assay method for the [employer] chemistry system. Values obtained with different assay methods cannot be used interchangably. When changing PSA assays in the course of monitoring a patient, additional sequential testing should be carried out to confirm baseline values. Performed By: #### L 500.2500, L100.0100 #### [facility] [address] [place], [place], [id number] Thyroid Stim Hormone (TSH)on 12-13-2021 TSH 1.00 uIU/mL Normal 0.358-3.74 [facility] Comment on above: Performed By: #### L 500.2500, L100.0100 #### [facility] [address] [place], [address] Vitamin D,25 Hydroxyon 12-13 Vitamin D 25-OH 13.1 ng/mL Normal [facility] Comment on above: Result Comment: Usha min D 25(OH) Status Range Deficiency <20 ng/mL (50nmol/L) Insufficiency 20 - 30 ng/mL (50 - 75 nmol/L) Sufficiency 30 - 100 ng/mL (75 - 250 nmol/L) Toxicity >100 ng/mL (>250 nmol/L) Performed By: #### L 500.4100, L500.4050, L501.9985, L506.1000, L100.0100, L501.9910, L501.9520 #### [facility] [address] [place], [address] Basic Metabolic Profile (BMP )on 10-14-2021 BUN/CRE 15.4 RATIO Normal 10-20 [facility] Comment on above: Performed By: #### L 500.2500, L100.0100 #### [facility] [address] [place], [address] CA,Total 8.5 mg/dL Normal 8.5-10.1 [facility] Comment on above: Performed By: #### L 500.2500, L100.0100 #### [facility] [address] [place], [address] Chloride [Moles/Vol] 101 mmol/L Normal 98-107 [facility] Comment on above: Performed By: #### L 500.2500, L100.0100 #### [facility] [address] [place], [address] CO2 [Moles/Vol] 28.0 mmol/L Normal 21.0-32.0 [facility] Comment on above: Performed By: #### L 500.2500, L100.0100 #### [facility] [address] [place], [address] Creatinine [Mass/Vol] 1.17 mg/dL Normal 0.70-1.30 [facility] Comment on above: Result Comment: The validity of the calculated GFR GFRAA in patients over 70 years has not been determined. Clinical correlation is essential. Performed By: #### L 500.2500, L100.0100 #### [facility] [address] [place], [address] ECRCL 87.51 ml/min Normal [facility] Comment on above: Performed By: #### L 500.2500, L100.0100 #### [facility] [address] [place], [address] EST GFR - AA 87 mL/min Normal >60 [facility] Comment on above: Result Comment: Afri can Moroccan GFR Calc Performed By: #### L 500.2500, L100.0100 #### [facility] [address] [place], [address] GAP 8 Normal 5-15 [facility] Comment on above: Performed By: #### L 500.2500, L100.0100 #### [facility] [address] [place], [address] GFR/1.73 sq M.predicted among non-blacks MDRD (S/P/Bld) [Vol rate/Area] 72 mL/min/{1.73_m2} Normal >60 [facility] Comment on above: Result Comment: Non- GFR Calc Performed By: #### L 500.2500, L100.0100 #### [facility] [address] [place], [address] Glucose [Mass/Vol] 145 mg/dL High 74-106 [facility] Comment on above: Result Comment: Fast ing Glucose result greater than or equal to 126 mg/dL suggests DIABETES MELLITUS per A.D.A. criteria. Please note revised GLUCOSE reference range effective 2017. Performed By: #### L 500.2500, L100.0100 #### [facility] [address] [place], [address] Potassium [Moles/Vol] 4.3 mmol/L Normal 3.5-5.1 [facility] Comment on above: Result Comment: Mode rate Hemolysis, Result may be falsely increased. Performed By: #### L 500.2500, L100.0100 #### [facility] [address] [place], [address] Sodium [Moles/Vol] 137 mmol/L Normal 136-145 [facility] Comment on above: Performed By: #### L 500.2500, L100.0100 #### [facility] [address] [place], [address] Urea nitrogen [Mass/Vol] 18 mg/dL Normal 7-18 [facility] Comment on above: Performed By: #### L 500.2500, L100.0100 #### [facility] [address] [place], [address] CBC W/Diff, Automatedon 12-0 Absolute Lymph 0.71 X10 3/uL Low 0.83-4.51 [facility] Comment on above: Performed By: #### L 500.2500, L100.0100 #### [facility] [address] [place], [address] Absolute Neut 8.7 X10 3/uL High 2.0-7.7 [facility] Comment on above: Performed By: #### L 500.2500, L100.0100 #### [facility] [address] [place], [address] Basophils/100 WBC (Bld) 0.2 % Normal 0-1 [facility] Comment on above: Performed By: #### L 500.2500, L100.0100 #### [facility] [address] [place], [address] Eosinophils/100 WBC (Bld) 1.1 % Normal 0-5 [facility] Comment on above: Performed By: #### L 500.2500, L100.0100 #### [facility] [address] [place], [address] Erythrocyte distribution width (RBC) [Ratio] 12.0 % Normal 11.6-14.6 [facility] Comment on above: Performed By: #### L 500.2500, L100.0100 #### [facility] [address] [place], [address] Hematocrit (Bld) [Volume fraction] 34.7 % Low 40-54 [facility] Comment on above: Performed By: #### L 500.2500, L100.0100 #### [facility] [address] [place], [address] Hemoglobin (Bld) [Mass/Vol] 11.9 g/dL Low 13.0-16.5 [facility] Comment on above: Performed By: #### L 500.2500, L100.0100 #### [facility] [address] [place], [address] IG% 1.200 High 0.0-0.9 [facility] Comment on above: Result Comment: IG% - Immature Granulocytes (promyelocytes, myelocytes and metamyelocytes) > 1% indicates that a LEFT SHIFT is Present. Performed By: #### L 500.2500, L100.0100 #### [facility] [address] [place], [address] Lymphocytes/100 WBC (Bld) 7.0 % Low 19-41 [facility] Comment on above: Performed By: #### L 500.2500, L100.0100 #### [facility] [address] [place], [address] MCH (RBC) [Entitic mass] 29.0 pg Normal 27.0-32.0 [facility] Comment on above: Performed By: #### L 500.2500, L100.0100 #### [facility] [address] [place], [address] MCHC (RBC) [Mass/Vol] 34.3 g/dL Normal 32-36 [facility] Comment on above: Performed By: #### L 500.2500, L100.0100 #### [facility] [address] [place], [address] MCV (RBC) [Entitic vol] 84.4 fL Normal 80-94 [facility] Comment on above: Performed By: #### L 500.2500, L100.0100 #### [facility] [address] [place], [address] Monocytes/100 WBC (Bld) 4.7 % Normal 0-10 [facility] Comment on above: Performed By: #### L 500.2500, L100.0100 #### [facility] [address] [place], [address] Neutrophils/100 WBC (Bld) 85.8 % High 47-70 [facility] Comment on above: Performed By: #### L 500.2500, L100.0100 #### [facility] [address] [place], [address] Nucleated RBC (Bld) [#/Vol] 0 10*3/uL Normal 0-5 [facility] Comment on above: Performed By: #### L 500.2500, L100.0100 #### [facility] [address] [place], [address] Platelet mean volume (Bld) [Entitic vol] 10.0 fL Normal 6.2-12.0 [facility] Comment on above: Performed By: #### L 500.2500, L100.0100 #### [facility] [address] [place], [address] Platelets (Bld) [#/Vol] 357 10*3/uL Normal 150-450 [facility] Comment on above: Performed By: #### L 500.2500, L100.0100 #### [facility] [address] [place], [address] RBC (Bld) [#/Vol] 4.11 10*6/uL Low 4.6-6.2 [facility] Comment on above: Performed By: #### L 500.2500, L100.0100 #### [facility] [address] [place], [address] RDW SD 36.3 fl Normal 35.1-43.9 [facility] Comment on above: Performed By: #### L 500.2500, L100.0100 #### [facility] [address] [place], [address] WBC (Bld) [#/Vol] 10.2 10*3/uL Normal 4.4-11.0 [facility] Comment on above: Performed By: #### L 500.2500, L100.0100 #### [facility] [address] [place], [address] Chest 1 View (Portable)on Chest 1 View (Portable) [facility] [address] [place] [address] Chest 1 View (Portable) MR#: [id number] Acct: [id number] Name: SHIV TYSON Rep #: [id number] : 1975 M 46 From: Syed Ybarra MD PCP: Care Physician,No Primary Status: REG ER Study: Chest 1 View (Portable) Date of Exam: 10/13/21 Exam# [id number] Ordering Dr: Gera Zuniga MD EXAM: XR CHEST, 1 VIEW CLINICAL INDICATION: Positive Covid test with bilateral rales TECHNIQUE: Frontal view of the chest. This report was created using [employer]AM[employer] report generation technology. COMPARISON: None. FINDINGS: LUNGS AND PLEURAL SPACES: Bilateral multilobar pneumonia. No pneumothorax. No effusion. HEART: Unremarkable. Cardiac silhouette not enlarged. MEDIASTINUM: Fullness of the hilar regions may represent reactive adenopathy. No other abnormalities. BONES/JOINTS: Degenerative changes of the spine and acromioclavicular joints. SOFT TISSUES: Unremarkable. RAD/Chest 1 View (Portable) IMPRESSION: Bilateral multilobar pneumonia. Electronically Signed: Syed Ybarra MD at 22:47 EST Tel , Service support , CC: Dr. Gera Zuniga MD; No Primary Care Physician Want Ad Receiver: Signed Normal [facility] Emergency Department Summary on 10-13-2021 Emergency Department Summary [facility] Medical Records Department [address] [place] [address] Emergency Department Summary 10/13/21 MR#: [id number] Acct: [id number] Name: SHIV TYSON Rep #: [id number] : 1975 46 From: Gera Zuniga MD PCP: Care Physician,No Primary Status:REG ER Location: ED HPI History of Present Illness Chief Complaint: Fever Detail of Chief Complaint: Fever, chills, dyspnea on exertion and positive Covid test this past week Informant: patient and spouse/S.O. Onset/Context/Timing Onset: Weeks (Onset of symptoms Thanksgiving. Patient states he had loss of taste and smell that time) Context: Sudden Onset Timing: Continuous Quality: Loss of taste and smell with upper respiratory symptoms, chills, myalgias a Current Severity: Mild Maximum Severity: Severe Worsened by: Nothing Relieved by: Nothing Associated Symptoms Associated Symptoms: Per HPI Narrative Narrative: Patient is a 46-year-old male with no significant past medical history who states his onset of symptoms was Thanksgiving. He states he initially lost taste or smell. He then had rhinorrhea, congestion and sore throat. Last several days he has had elevated temperature with shaking chills and total body aches. He had a Covid test performed at the urgent care which was positive. Patient states he did go to work on Monday. He denies smoking. Denies alcohol use. His spouse is with him. He denies history of VTE. He denies leg pain, swelling discoloration. Prior similar symptoms: No Recent Illness/Hospitalization : Yes PFSH PFSH Medical History no medical history Home Medications dexamethasone [Decadron] 6 mg PO DAILY #7 tab 10/13/21 [Rx Last Taken Unknown] Allergy/AdvReac Type Severity Reaction Status Date / Time No Known Allergies Allergy Verified 10/13/21 21:13 Surgical History no surgical history no surgical history Social History (Updated 10/13/21 @ 21:[address] Gera Zuniga MD) household members: spouse Smoking Status: Never smoker substance use type: does not use ROS ROS ED Constitutional Constitutional ED: Reports chills, fever(s) and sweats; Denies weight loss Eyes Eyes: Denies blurry vision, change in vision or diplopia ENT ENT ED: Reports rhinorrhea and sore throat; Denies ear pain Cardiovascular Cardiovascular: Denies chest pain, orthopnea, palpitations, paroxysmal nocturnal dyspnea or racing heartbeat Respiratory/Chest Respiratory/Chest: Reports cough, dyspnea and dyspnea on exertion; Denies orthopnea, paroxysmal nocturnal dyspnea or sputum Gastrointestinal Gastrointestinal: Reports abdominal pain, diarrhea, nausea and vomiting Genitourinary Genitourinary ED: Denies dysuria, hematuria or urinary frequency Musculoskeletal Musculoskeletal: Reports arthralgias and myalgias Integumentary Denies Abrasions or rash Neurologic Neurologic: Reports headache(s) and weakness; Denies paresthesias Endocrine Endocrinology: Denies polydipsia, polyphagia or polyuria EXAM Physical Exam Const Vital Signs: 10/13/21 21:10 Temperature 101.8 F H Temperature Source Oral Pulse Rate 102 H Respiratory Rate 20 H Blood Pressure 109/77 Blood Pressure Mean 87 Pulse Ox 94 Oxygen Delivery Method Room Air Positive well nourished, well developed and obese General Appearance ED: well developed and NAD; Negative for cyanotic, diaphoretic or pallor Nutritional Appearance: obese HEENT Reports dry mucous membranes Negative for trauma or tenderness Mouth ED: Yes dry mucous membranes Mouth: dry mucous membranes Eyes PERRL and EOMs intact bilaterally General Eye ED: Negative for pale conjunctiva or scleral icterus Neck no lymphadenopathy, supple and no JVD General: Negative for tenderness Chest Wall inspection of chest normal and palpation of chest normal Resp normal respiratory effort Auscultation: rales bilateral base Cardio regular rhythm, S1 normal heart sound, S2 normal heart sound and no murmurs Rate: tachycardic GI normal to inspection, nondistended, normoactive bowel sounds and non-tender Palpation: soft Back/Spine no CVA tenderness Cervical Spine: Negative for cervical spine tenderness Thoracic Spine / Upper Back: Negative for thoracic spinal tenderness or paraspinal muscle tenderness Extremity normal to inspection General Extremety ED: Negative for edema or tenderness General Extremity: Negative for edema Neuro oriented x3, CN's II-XII intact bilaterally and no sensory deficits noted Sensorium / Orientation: alert Motor Exam: strength 5/5 throughout Psych mental status grossly normal Skin no rashes or lesions noted and no wounds General Skin Exam: elasticity normal; Negative for jaundice or pallor MDM MDM MDM Narrative Medical decision making narrative: Patient has symptoms due to Covid. [facility] (more content not included)... Normal [facility] Summary Purpose Family History No Family History Records Found Advance Directives No Advanced Directives Records Found Additional Source Comments (unrecognized sect ion and content) No Status Records Found INFORMATION SOURCE (unrecogn ized section and content) DATE CREATED AUTHOR 01/31/2022 [facility] FOR RECORDS PERTAINING TO PATIENTS WHO ARE OR HAVE BEEN ENROLLED IN A CHEMICAL DEPENDENCY/SUBSTANCEABUSE PROGRAM, SOME INFORMATION MAY BE OMITTED. This clinical summary was aggregated from multiple sources. Caution should be exercised in using it in the provision of clinical care. This summary normalizes information from multiple sources, and as a consequence, information in this document may materially change the coding, format and clinical context of patient data. In addition, data may be omitted in some cases. CLINICAL DECISIONS SHOULD BE BASED ON THE PRIMARY CLINICAL RECORDS. [email or web address] provides no warranty or guarantee of the accuracy or completeness of information in this document.
[2025-10-27] MEDS: Bupiv/Epi 0.25% 30 ML Vial (21:28)
--- NOTE | 2025-10-27 21:29 | PCM.OPRPT ---
Procedures Digestive 40xxx-49xxx: 10560 Laparoscopy appendectomy Operative Report (Standard) Operative Information Date of Procedure: 10/27/25 Pre-Operative Diagnosis: Acute appendicitis Post-Operative Diagnosis: Acute uncomplicated appendicitis Surgery/Procedure Performed: Laparoscopic appendectomy earth science technical officer: Yes Inspector Welded Parts: Chapis Nath Tasks completed by health information assistant: Opening & closing, Retracting and Other (Laparoscopic camera operation) Type of Anesthesia: General/Supplemental RN Documented Start/Stop Times: Operation Date: 10/28/25 08:00 <No data on this case meets the specified criteria> Procedure Start Time: 20:57 Procedure Stop Time: 21:30 Select all DRAINS/GRAFTS/IMPLANTS that apply: None Estimated Blood Loss: 15 Specimen collected: Yes Description of specimen(s) removed: Appendix Description of surgery: After appropriate identification in the preoperative holding area, the patient was brought to the operating room and placed supine on the operating room table. Antibiotics had been preoperatively administered by emergency medicine with 3.375 g Zosyn. Patient was then induced with general endotracheal anesthetic. The abdomen was prepped and draped in usual sterile fashion. Formal timeout was conducted to confirm both the patient and the procedure. A supraumbilical incision was made and carried down to the level of the fascia which was sharply opened. After opening the peritoneum in like fashion a finger sweep was made to confirm position, and a balloon trocar was placed and pneumoperitoneum was established to 15 mmHg. Patient was positioned in Trendelenburg with the left side down. Two additional 5 mm trocars were placed in the left lower quadrant and suprapubic positions. The peritoneum was inspected and there are no signs of inadvertent injury from this Pichardo entry. A right indirect inguinal hernia was visualized upon inspection of the right pelvis. The appendix was not immediately visualized due to number of significant adhesions and overlapping. Eventually the terminal ileum was displaced through positioning changes as well as manipulation with our laparoscopic graspers and the appendix was visualized with moderately severe inflammation but no evidence of perforation. Admittedly the base of the appendix was completely obscured with adhesions to the retroperitoneum and then with the sale of the appendix after confirming the position of the terminal ileum, cecum blunt laparoscopic dissection employed to create a window was made in the mesoappendix adjacent to the appendiceal base. The mesoappendix was divided with application of a laparoscopic harmonic. Then the base of the appendix was sealed and amputated with the use of an Endo OLGA LIDIA stapler after confirming that it was comprised of viable tissue. The appendix was placed in an Endo Catch bag. The staple line was inspected for hemostasis. There was slight oozing in the midportion of the staple line initially so a Ray-Pako gauze was inserted and pressure was applied to the staple line through the Ray-Pako with a laparoscopic grasper for a period of 2 minutes. The area was reinspected and hemostasis was confirmed. After hemostasis was confirmed the appendix was removed from the umbilical port site. Pneumoperitoneum was then evacuated and the supraumbilical port site fascia was closed with #1 Vicryl in a [id number] fashion. The port sites were infiltrated with 30 mL local anesthetic. The skin of each port site was closed with 4-0 Monocryl in a subcuticular fashion. Steri-Strips and OpSite dressings were applied. Patient tolerated procedure well without any apparent complications. They were awoken from general anesthetic without issue and transferred to post anesthesia care unit for ongoing recovery. Surgical Findings: ? Moderately severe inflammation of the appendix without gross evidence for perforation ? Incidentally noted right indirect inguinal hernia Complications Complications: No Admit VTE Documentation VTE Mechan Device Prophylaxis: SCD's
--- NOTE | 2025-10-27 21:44 | PCM.POST.ANE ---
Anesthesia: Postop Eval I Current Vital Signs Temperature: 99.9 F Pulse Rate: 109 Blood Pressure: 125/66 Respiratory Rate: 18 Pulse Ox: 97 Oxygen Delivery Method: Room Air Assessment Airway patent: Yes Spontaneous unlabored respirations: Yes Mental status: Awake nausea: No Vomiting: No Anesthesia Complication: No Fluid Hydration Crystalloid volume administer (ml): 400 Total IV fluid infused: 400 Progress Note Anesthesia document: Postop Eval 1 completed: Yes
--- NOTE | 2025-10-27 21:45 | PCM.POSTANE2 ---
Anesthesia Postop Eval I Sum Postop Eval Completion status Anesthesia document: Postop Eval 1 completed: Yes Anesthesia Postop Eval I Summary Anesthesia Postop Eval I Summary: Anesthesia Postop Eval I: Assessment Summary Airway patent Yes 10/27/25 21:45 Spontaneous unlabored Yes 10/27/25 21:45 respirations Mental status Awake 10/27/25 21:45 nausea No 10/27/25 21:45 Vomiting No 10/27/25 21:45 Anesthesia Postop Eval I: Fluid Summary Crystalloid volume administer 400 10/27/25 21:45 (ml) Colloids volume administered ( ml) Blood Product volume administered (ml) Total IV fluid infused 400 10/27/25 21:45 Anesthesia Postop Eval I: Summary Notes Anesthesia Complication No 10/27/25 21:45 Anesthesia Complication Comment: Post-operative progress note Anesthesia: Postop Eval II Evaluation Mental status: Awake Pain Level: 2 nausea: No Vomiting: No
--- OUTSIDE RECORDS SUMMARY | 2025-10-27 22:07 | XMS RPT_ITS | CCD ---
Author Organization [facility] Results Test Name Value Interpretation Reference Range Facility CBC W/Diff, Automatedon 02-0 -2021 Absolute Lymph 1.92 X10 3/uL Normal 0.83-4.51 [facility] Comment on above: Performed By: #### L 500.4100, L500.4050, L501.9985, L506.1000, L100.0100, L501.9910, L501.9520 #### [facility] [address] [place], [address] Absolute Neut 4.8 X10 3/uL Normal 2.0-7.7 [facility] Comment on above: Performed By: #### L 500.4100, L500.4050, L501.9985, L506.1000, L100.0100, L501.9910, L501.9520 #### [facility] [address] [place], [address] Basophils/100 WBC (Bld) 0.7 % Normal 0-1 [facility] Comment on above: Performed By: #### L 500.4100, L500.4050, L501.9985, L506.1000, L100.0100, L501.9910, L501.9520 #### [facility] [address] [place], [address] Eosinophils/100 WBC (Bld) 2.0 % Normal 0-5 [facility] Comment on above: Performed By: #### L 500.4100, L500.4050, L501.9985, L506.1000, L100.0100, L501.9910, L501.9520 #### [facility] [address] [place], [address] Erythrocyte distribution width (RBC) [Ratio] 13.3 % Normal 11.6-14.6 [facility] Comment on above: Performed By: #### L 500.4100, L500.4050, L501.9985, L506.1000, L100.0100, L501.9910, L501.9520 #### [facility] [address] [place], [address] Hematocrit (Bld) [Volume fraction] 41.9 % Normal 40-54 [facility] Comment on above: Performed By: #### L 500.4100, L500.4050, L501.9985, L506.1000, L100.0100, L501.9910, L501.9520 #### [facility] [address] [place], [address] Hemoglobin (Bld) [Mass/Vol] 13.9 g/dL Normal 13.0-16.5 [facility] Comment on above: Performed By: #### L 500.4100, L500.4050, L501.9985, L506.1000, L100.0100, L501.9910, L501.9520 #### [facility] [address] [place], [address] IG% 0.300 Normal 0.0-0.9 [facility] Comment on above: Result Comment: IG% - Immature Granulocytes (promyelocytes, myelocytes and metamyelocytes) > 1% indicates that a LEFT SHIFT is Present. Performed By: #### L 500.4100, L500.4050, L501.9985, L506.1000, L100.0100, L501.9910, L501.9520 #### [facility] [address] [place], [address] Lymphocytes/100 WBC (Bld) 25.4 % Normal 19-41 [facility] Comment on above: Performed By: #### L 500.4100, L500.4050, L501.9985, L506.1000, L100.0100, L501.9910, L501.9520 #### [facility] [address] [place], [address] MCH (RBC) [Entitic mass] 28.7 pg Normal 27.0-32.0 [facility] Comment on above: Performed By: #### L 500.4100, L500.4050, L501.9985, L506.1000, L100.0100, L501.9910, L501.9520 #### [facility] [address] [place], [address] MCHC (RBC) [Mass/Vol] 33.2 g/dL Normal 32-36 [facility] Comment on above: Performed By: #### L 500.4100, L500.4050, L501.9985, L506.1000, L100.0100, L501.9910, L501.9520 #### [facility] [address] [place], [address] MCV (RBC) [Entitic vol] 86.6 fL Normal 80-94 [facility] Comment on above: Performed By: #### L 500.4100, L500.4050, L501.9985, L506.1000, L100.0100, L501.9910, L501.9520 #### [facility] [address] [place], [address] Monocytes/100 WBC (Bld) 8.6 % Normal 0-10 [facility] Comment on above: Performed By: #### L 500.4100, L500.4050, L501.9985, L506.1000, L100.0100, L501.9910, L501.9520 #### [facility] [address] [place], [address] Neutrophils/100 WBC (Bld) 63.0 % Normal 47-70 [facility] Comment on above: Performed By: #### L 500.4100, L500.4050, L501.9985, L506.1000, L100.0100, L501.9910, L501.9520 #### [facility] [address] [place], [address] Nucleated RBC (Bld) [#/Vol] 0 10*3/uL Normal 0-5 [facility] Comment on above: Performed By: #### L 500.4100, L500.4050, L501.9985, L506.1000, L100.0100, L501.9910, L501.9520 #### [facility] [address] [place], [address] Platelet mean volume (Bld) [Entitic vol] 10.8 fL Normal 6.2-12.0 [facility] Comment on above: Performed By: #### L 500.4100, L500.4050, L501.9985, L506.1000, L100.0100, L501.9910, L501.9520 #### [facility] [address] [place], [address] Platelets (Bld) [#/Vol] 230 10*3/uL Normal 150-450 [facility] Comment on above: Performed By: #### L 500.4100, L500.4050, L501.9985, L506.1000, L100.0100, L501.9910, L501.9520 #### [facility] [address] [place], [address] RBC (Bld) [#/Vol] 4.84 10*6/uL Normal 4.6-6.2 [facility] Comment on above: Performed By: #### L 500.4100, L500.4050, L501.9985, L506.1000, L100.0100, L501.9910, L501.9520 #### [facility] [address] [place], [address] RDW SD 42.0 fl Normal 35.1-43.9 [facility] Comment on above: Performed By: #### L 500.4100, L500.4050, L501.9985, L506.1000, L100.0100, L501.9910, L501.9520 #### [facility] [address] [place], [address] WBC (Bld) [#/Vol] 7.6 10*3/uL Normal 4.4-11.[address] [facility] Comment on above: Performed By: #### L 500.4100, L500.4050, L501.9985, L506.1000, L100.0100, L501.9910, L501.9520 #### [facility] [address] [place], [address] Comprehensive Metabolic Prof wyon 12-13-2021 Albumin [Mass/Vol] 3.5 g/dL Normal 3.2-5.[address] [facility] Comment on above: Performed By: #### L 500.4100, L500.4050, L501.9985, L506.1000, L100.0100, L501.9910, L501.9520 #### [facility] [address] [place], [address] Albumin/Globulin [Mass ratio] 0.9 {ratio} Normal 0.9-2.4 [facility] Comment on above: Performed By: #### L 500.4100, L500.4050, L501.9985, L506.1000, L100.0100, L501.9910, L501.9520 #### [facility] [address] [place], [address] ALK P 80 U/L Normal 45-117 [facility] Comment on above: Performed By: #### L 500.4100, L500.4050, L501.9985, L506.1000, L100.0100, L501.9910, L501.9520 #### [facility] [address] [place], [address] ALT [Catalytic activity/Vol] 24 U/L Normal 16-61 [facility] Comment on above: Performed By: #### L 500.4100, L500.4050, L501.9985, L506.1000, L100.0100, L501.9910, L501.9520 #### [facility] [address] [place], [address] AST [Catalytic activity/Vol] 18 U/L Normal 15-37 [facility] Comment on above: Performed By: #### L 500.4100, L500.4050, L501.9985, L506.1000, L100.0100, L501.9910, L501.9520 #### [facility] [address] [place], [address] Bilirubin [Mass/Vol] 0.70 mg/dL Normal 0.20-1.00 [facility] Comment on above: Result Comment: For patients on eltrombopag therapy, use of Dimension [place] TBIL is not recommended. Performed By: #### L 500.4100, L500.4050, L501.9985, L506.1000, L100.0100, L501.9910, L501.9520 #### [facility] [address] [place], [address] BUN/CRE 11.4 RATIO Normal 10-20 [facility] Comment on above: Performed By: #### L 500.4100, L500.4050, L501.9985, L506.1000, L100.0100, L501.9910, L501.9520 #### [facility] [address] [place], [address] CA,Total 9.0 mg/dL Normal 8.5-10.1 [facility] Comment on above: Performed By: #### L 500.4100, L500.4050, L501.9985, L506.1000, L100.0100, L501.9910, L501.9520 #### [facility] [address] [place], [address] Chloride [Moles/Vol] 107 mmol/L Normal 98-107 [facility] Comment on above: Performed By: #### L 500.4100, L500.4050, L501.9985, L506.1000, L100.0100, L501.9910, L501.9520 #### [facility] [address] [place], [address] CO2 [Moles/Vol] 26.0 mmol/L Normal 21.0-32.0 [facility] Comment on above: Performed By: #### L 500.4100, L500.4050, L501.9985, L506.1000, L100.0100, L501.9910, L501.9520 #### [facility] [address] [place], [address] Creatinine [Mass/Vol] 1.14 mg/dL Normal 0.70-1.30 [facility] Comment on above: Result Comment: The validity of the calculated GFR GFRAA in patients over 70 years has not been determined. Clinical correlation is essential. Performed By: #### L 500.4100, L500.4050, L501.9985, L506.1000, L100.0100, L501.9910, L501.9520 #### [facility] [address] [place], [address] EST GFR - AA 89 mL/min Normal >60 [facility] Comment on above: Result Comment: Afri can [place] GFR Calc Performed By: #### L 500.4100, L500.4050, L501.9985, L506.1000, L100.0100, L501.9910, L501.9520 #### [facility] [address] [place], [address] GAP 5 Normal 5-15 [facility] Comment on above: Performed By: #### L 500.4100, L500.4050, L501.9985, L506.1000, L100.0100, L501.9910, L501.9520 #### [facility] [address] [place], [address] GFR/1.73 sq M.predicted among non-blacks MDRD (S/P/Bld) [Vol rate/Area] 74 mL/min/{1.73_m2} Normal >60 [facility] Comment on above: Result Comment: Non- GFR Calc Performed By: #### L 500.4100, L500.4050, L501.9985, L506.1000, L100.0100, L501.9910, L501.9520 #### [facility] [address] [place], [address] Globulin (S) [Mass/Vol] 3.9 g/dL Normal 2.2-4.2 [facility] Comment on above: Performed By: #### L 500.4100, L500.4050, L501.9985, L506.1000, L100.0100, L501.9910, L501.9520 #### [facility] [address] [place], [address] Glucose [Mass/Vol] 114 mg/dL High 74-[address] [facility] Comment on above: Result Comment: Fast ing Glucose result from 100 to 125 mg/dL suggests IMPAIRED HOMEOSTASIS per A.D.A. criteria. Performed By: #### L 500.4100, L500.4050, L501.9985, L506.1000, L100.0100, L501.9910, L501.9520 #### [facility] [address] [place], [address] Potassium [Moles/Vol] 4.5 mmol/L Normal 3.5-5.1 [facility] Comment on above: Performed By: #### L 500.4100, L500.4050, L501.9985, L506.1000, L100.0100, L501.9910, L501.9520 #### [facility] [address] [place], [address] Sodium [Moles/Vol] 138 mmol/L Normal 136-[address] [facility] Comment on above: Performed By: #### L 500.4100, L500.4050, L501.9985, L506.1000, L100.0100, L501.9910, L501.9520 #### [facility] [address] [place], [address] T PROT 7.4 g/dL Normal 6.4-8.2 [facility] Comment on above: Performed By: #### L 500.4100, L500.4050, L501.9985, L506.1000, L100.0100, L501.9910, L501.9520 #### [facility] [address] [place], [address] Urea nitrogen [Mass/Vol] 13 mg/dL Normal 7-18 [facility] Comment on above: Performed By: #### L 500.4100, L500.4050, L501.9985, L506.1000, L100.0100, L501.9910, L501.9520 #### [facility] [address] [place], [address] Hemoglobin A1con 12-13-2021 HbA1c (Bld) [Mass fraction] 5.7 % High 3.8-5.6 [facility] Comment on above: Result Comment: Norm al < 5.7 % Prediabetic 5.7 - 6.4 % Diabetic >or= 6.5 % Please note range changes. Performed By: #### L 500.4100, L500.4050, L501.9985, L506.1000, L100.0100, L501.9910, L501.9520 #### [facility] [address] [place], [address] Internal Medicine Office Vis iton 12-13-2021 Internal Medicine Office Visit [facility] [address] [place] [address] OFFICE VISIT Date of Service: 12/13/21 MR#: [id number] Acct: [id number] Name: SHIV TYSON Rep #: [id number] : 1975 Provider: Dr. Vilma ramos MD Age/Sex: 46/M [place] [facility] Status: Signed Intake Vital Signs 12/13/21 08:51 [...] No Known Allergies Allergy (Verified 12/13/21 08:56) PENDING SALE TO [facility] Medical History (Updated 12/13/21 @ 11:52 by [...] takes no routine long-term medications. Originally from [place], has lived in this area, [place], for about 11 years he states. 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 Normal [facility] Lipid Profileon 12-13-2021 Cholesterol [Mass/Vol] 186 mg/dL Normal 200 [facility] Comment on above: Result Comment: <200 mg/dL Desirable 200-240 mg/dL Borderline >240 mg/dL High Risk Performed By: #### L 500.4100, L500.4050, L501.9985, L506.1000, L100.0100, L501.9910, L501.9520 #### [facility] [address] [place], [address] Cholesterol in HDL [Mass/Vol] 36 mg/dL Low [facility] Comment on above: Result Comment: The drugs N-Acetylcysteine and Metamizole may falsely depress this assay. Reference Range HDL <40 mg/dL Low HDL Cholesterol HDL >or= 60 mg/dL High HDL Cholesterol Performed By: #### L 500.4100, L500.4050, L501.9985, L506.1000, L100.0100, L501.9910, L501.9520 #### [facility] [address] [place], [address] Cholesterol in LDL [Mass/Vol] 106 mg/dL Normal 0-130 [facility] Comment on above: Performed By: #### L 500.4100, L500.4050, L501.9985, L506.1000, L100.0100, L501.9910, L501.9520 #### [facility] [address] [place], [place], [id number] Cholesterol in VLDL [Mass/Vol] 44 mg/dL High 5-40 [facility] Comment on above: Performed By: #### L 500.4100, L500.4050, L501.9985, L506.1000, L100.0100, L501.9910, L501.9520 #### [facility] [address] [place], [place], [id number] (494) Triglyceride [Mass/Vol] 220 mg/dL High [facility] Comment on above: Result Comment: The drugs N-Acetylcysteine and Metamizole may falsely depress this assay. Serum Triglycerides Reference Interval Normal <150 mg/dL Borderline high 150 - 199 mg/dL High 200 - 499 mg/dL Very High > or = 500 mg/dL Performed By: #### L 500.4100, L500.4050, L501.9985, L506.1000, L100.0100, L501.9910, L501.9520 #### [facility] [address] [place], [place], [id number] PSA,Total - Annual Screenon 12-13-2021 PSA,TOT SCREEN 0.82 ng/mL Normal 0.00-4.00 [facility] Comment on above: Result Comment: This test was performed using the TPSA assay method for the [employer] chemistry system. Values obtained with different assay methods cannot be used interchangably. When changing PSA assays in the course of monitoring a patient, additional sequential testing should be carried out to confirm baseline values. Performed By: #### L 500.2500, L100.0100 #### [facility] [address] [place], [place], [id number] Thyroid Stim Hormone (TSH)on 12-13-2021 TSH 1.00 uIU/mL Normal 0.358-3.74 [facility] Comment on above: Performed By: #### L 500.2500, L100.0100 #### [facility] [address] [place], [address] Vitamin D,25 Hydroxyon 12-13 Vitamin D 25-OH 13.1 ng/mL Normal [facility] Comment on above: Result Comment: Usha min D 25(OH) Status Range Deficiency <20 ng/mL (50nmol/L) Insufficiency 20 - 30 ng/mL (50 - 75 nmol/L) Sufficiency 30 - 100 ng/mL (75 - 250 nmol/L) Toxicity >100 ng/mL (>250 nmol/L) Performed By: #### L 500.4100, L500.4050, L501.9985, L506.1000, L100.0100, L501.9910, L501.9520 #### [facility] [address] [place], [address] Basic Metabolic Profile (BMP )on 10-14-2021 BUN/CRE 15.4 RATIO Normal 10-20 [facility] Comment on above: Performed By: #### L 500.2500, L100.0100 #### [facility] [address] [place], [address] CA,Total 8.5 mg/dL Normal 8.5-10.1 [facility] Comment on above: Performed By: #### L 500.2500, L100.0100 #### [facility] [address] [place], [address] Chloride [Moles/Vol] 101 mmol/L Normal 98-107 [facility] Comment on above: Performed By: #### L 500.2500, L100.0100 #### [facility] [address] [place], [address] CO2 [Moles/Vol] 28.0 mmol/L Normal 21.0-32.0 [facility] Comment on above: Performed By: #### L 500.2500, L100.0100 #### [facility] [address] [place], [address] Creatinine [Mass/Vol] 1.17 mg/dL Normal 0.70-1.30 [facility] Comment on above: Result Comment: The validity of the calculated GFR GFRAA in patients over 70 years has not been determined. Clinical correlation is essential. Performed By: #### L 500.2500, L100.0100 #### [facility] [address] [place], [address] ECRCL 87.51 ml/min Normal [facility] Comment on above: Performed By: #### L 500.2500, L100.0100 #### [facility] [address] [place], [address] EST GFR - AA 87 mL/min Normal >60 [facility] Comment on above: Result Comment: Afri can [place] GFR Calc Performed By: #### L 500.2500, L100.0100 #### [facility] [address] [place], [address] GAP 8 Normal 5-15 [facility] Comment on above: Performed By: #### L 500.2500, L100.0100 #### [facility] [address] [place], [address] GFR/1.73 sq M.predicted among non-blacks MDRD (S/P/Bld) [Vol rate/Area] 72 mL/min/{1.73_m2} Normal >60 [facility] Comment on above: Result Comment: Non- GFR Calc Performed By: #### L 500.2500, L100.0100 #### [facility] [address] [place], [address] Glucose [Mass/Vol] 145 mg/dL High 74-[address] [facility] Comment on above: Result Comment: Fast ing Glucose result greater than or equal to 126 mg/dL suggests DIABETES MELLITUS per A.D.A. criteria. Please note revised GLUCOSE reference range effective 2017. Performed By: #### L 500.2500, L100.0100 #### [facility] [address] [place], [address] Potassium [Moles/Vol] 4.3 mmol/L Normal 3.5-5.1 [facility] Comment on above: Result Comment: Mode rate Hemolysis, Result may be falsely increased. Performed By: #### L 500.2500, L100.0100 #### [facility] [address] [place], [address] Sodium [Moles/Vol] 137 mmol/L Normal 136-[address] [facility] Comment on above: Performed By: #### L 500.2500, L100.0100 #### [facility] [address] [place], [address] Urea nitrogen [Mass/Vol] 18 mg/dL Normal 7-18 [facility] Comment on above: Performed By: #### L 500.2500, L100.0100 #### [facility] [address] [place], [address] CBC W/Diff, Automatedon 12-0 Absolute Lymph 0.71 X10 3/uL Low 0.83-4.51 [facility] Comment on above: Performed By: #### L 500.2500, L100.0100 #### [facility] [address] [place], [address] Absolute Neut 8.7 X10 3/uL High 2.0-7.7 [facility] Comment on above: Performed By: #### L 500.2500, L100.0100 #### [facility] [address] [place], [address] Basophils/100 WBC (Bld) 0.2 % Normal 0-1 [facility] Comment on above: Performed By: #### L 500.2500, L100.0100 #### [facility] [address] [place], [address] Eosinophils/100 WBC (Bld) 1.1 % Normal 0-5 [facility] Comment on above: Performed By: #### L 500.2500, L100.0100 #### [facility] [address] [place], [address] Erythrocyte distribution width (RBC) [Ratio] 12.0 % Normal 11.6-14.6 [facility] Comment on above: Performed By: #### L 500.2500, L100.0100 #### [facility] [address] [place], [address] Hematocrit (Bld) [Volume fraction] 34.7 % Low 40-54 [facility] Comment on above: Performed By: #### L 500.2500, L100.0100 #### [facility] [address] [place], [address] Hemoglobin (Bld) [Mass/Vol] 11.9 g/dL Low 13.0-16.5 [facility] Comment on above: Performed By: #### L 500.2500, L100.0100 #### [facility] [address] [place], [address] IG% 1.200 High 0.0-0.9 [facility] Comment on above: Result Comment: IG% - Immature Granulocytes (promyelocytes, myelocytes and metamyelocytes) > 1% indicates that a LEFT SHIFT is Present. Performed By: #### L 500.2500, L100.0100 #### [facility] [address] [place], [address] Lymphocytes/100 WBC (Bld) 7.0 % Low 19-41 [facility] Comment on above: Performed By: #### L 500.2500, L100.0100 #### [facility] [address] [place], [address] MCH (RBC) [Entitic mass] 29.0 pg Normal 27.0-32.0 [facility] Comment on above: Performed By: #### L 500.2500, L100.0100 #### [facility] [address] [place], [address] MCHC (RBC) [Mass/Vol] 34.3 g/dL Normal 32-36 [facility] Comment on above: Performed By: #### L 500.2500, L100.0100 #### [facility] [address] [place], [address] MCV (RBC) [Entitic vol] 84.4 fL Normal 80-94 [facility] Comment on above: Performed By: #### L 500.2500, L100.0100 #### [facility] [address] [place], [address] Monocytes/100 WBC (Bld) 4.7 % Normal 0-10 [facility] Comment on above: Performed By: #### L 500.2500, L100.0100 #### [facility] [address] [place], [address] Neutrophils/100 WBC (Bld) 85.8 % High 47-70 [facility] Comment on above: Performed By: #### L 500.2500, L100.0100 #### [facility] [address] [place], [address] Nucleated RBC (Bld) [#/Vol] 0 10*3/uL Normal 0-5 [facility] Comment on above: Performed By: #### L 500.2500, L100.0100 #### [facility] [address] [place], [address] Platelet mean volume (Bld) [Entitic vol] 10.0 fL Normal 6.2-12.0 [facility] Comment on above: Performed By: #### L 500.2500, L100.0100 #### [facility] [address] [place], [address] Platelets (Bld) [#/Vol] 357 10*3/uL Normal 150-450 [facility] Comment on above: Performed By: #### L 500.2500, L100.0100 #### [facility] [address] [place], [address] RBC (Bld) [#/Vol] 4.11 10*6/uL Low 4.6-6.2 [facility] Comment on above: Performed By: #### L 500.2500, L100.0100 #### [facility] [address] [place], [address] RDW SD 36.3 fl Normal 35.1-43.9 [facility] Comment on above: Performed By: #### L 500.2500, L100.0100 #### [facility] [address] [place], [address] WBC (Bld) [#/Vol] 10.2 10*3/uL Normal 4.4-11.0 [facility] Comment on above: Performed By: #### L 500.2500, L100.0100 #### [facility] [address] [place], [address] Chest 1 View (Portable)on Chest 1 View (Portable) [facility] [address] [place] [address] Chest 1 View (Portable) MR#: [id number] Acct: [id number] Name: SHIV TYSON Rep #: [id number] : 1975 M 46 From: Syed Ybarra MD PCP: Care Physician,No Primary Status: REG ER Study: Chest 1 View (Portable) Date of Exam: 10/13/21 Exam# [id number] Ordering Dr: Gera Zuniga MD EXAM: XR CHEST, 1 VIEW CLINICAL INDICATION: Positive Covid test with bilateral rales TECHNIQUE: Frontal view of the chest. This report was created using [employer] report generation technology. COMPARISON: None. FINDINGS: LUNGS [...] Gera Zuniga MD; No Primary Care Physician Industrial Economist: Signed Normal [facility] Emergency Department Summary on 10-13-2021 Emergency Department Summary [facility] Records Department [address] [place] [address] Emergency Department Summary 10/13/21 MR#: [id number] Acct: [id number] Name: SHIV TYSON Rep #: [id number] : 1975 46 From: Gera Zuniga MD [...] Covid. [facility] (more content not included)... Normal [facility] Summary Purpose Family History No Family History Records Found Advance Directives No Advanced Directives Records Found Additional Source Comments (unrecognized sect ion and content) No Status Records Found INFORMATION SOURCE (unrecogn ized section and content) DATE CREATED AUTHOR 01/31/2022 [facility] FOR RECORDS PERTAINING TO PATIENTS WHO ARE [...] BE BASED ON THE PRIMARY CLINICAL RECORDS. [employer] provides no warranty or guarantee of the accuracy or completeness of information in this document.
[2025-10-27] MEDS: 0.9% Normal Saline (1000mL) 1,000 ML 125 ML IV (22:39)
[2025-10-28 00:34] VITALS: O2SAT 89
[2025-10-28 00:37] VITALS: BP 121/54; PULSE 99; RESP 16; TEMP 36.9; O2SAT 95
[2025-10-28 02:24] VITALS: BP 109/47; PULSE 95; RESP 16; TEMP 36.9; O2SAT 95
[2025-10-28 05:52] VITALS: BP 112/56; PULSE 79; RESP 16; TEMP 36.8; O2SAT 97
[2025-10-28] MEDS: Piperacil/Tazobactam 3.375 GM in 0.9% Normal Saline (50mL MB+) 50 ML IV ×2 (05:55→14:35)
[2025-10-28] MEDS: 0.9% Normal Saline (1000mL) 1,000 ML 125 ML IV (06:02)
[2025-10-28 06:20] LABS: Hematocrit 38.6 % (40-54); Hemoglobin 12.8 g/dL (13.0-16.5); Immature Granulocytes Count 0.070 X10^3/uL (0.0-0.0); Mean Corp Hgb Conc 33.2 g/dL (32-36); Mean Corpuscular Volume 88.5 fL (80-94); Mean Platelet Vol. 10.6 fl (6.2-12.0); NRBC Flagged by Analyzer 0 % (0-5); Platelet Count 182 K/mm3 (150-450); RBC Distribution Width CV 12.8 % (11.6-14.6); RBC Distribution Width SD 41.1 fl (35.1-43.9); Red Blood Count 4.36 M/mm3 (4.6-6.2); White Blood Count 14.6 K/mm3 (4.4-11.0)
[2025-10-28 06:55] LABS: Anion Gap 13 (7-18); BUN 17 mg/dL (4-19); BUN/Creat Ratio 14.2 RATIO (10-20); Calcium,Total 8.2 mg/dL (7.6-11.0); Carbon Dioxide 21.0 mmol/L (20.0-29.0); Chloride 104 mmol/L (96-106); Estimated Creatinine Clearance 98.67 ml/min (50-250); Glucose 144 mg/dL (70-99); Potassium 3.8 mmol/L (3.5-5.1)
--- NOTE | 2025-10-28 08:54 | PN.SURG_ITS ---
Subjective Subjective Patient evaluated this morning. He notes right lower quadrant discomfort. He denies any nausea, vomiting, fever. Objective Data Objective Data Vital Signs: Vital Signs Temp Pulse Resp BP Pulse Ox O2 Del Method O2 Flow Rate 98.2 F 79 16 112/56 L 97 Nasal Cannula 2 10/28/25 05:52 10/28/25 05:52 10/28/25 05:52 10/28/25 05:52 10/28/25 05:52 10/28/25 05:52 10/28/25 05:52 Oxygen Flow Rate (L/min) 2 Oxygen Delivery Method Nasal Cannula Weight: 263 lb Body Mass Index (BMI) 36.6 Intake & Output: Intake and Output for Last 24 Hours 10/26/25 10/27/25 10/28/25 23:59 23:59 23:59 Intake Total 1100 / 1300 1322.92 / 1322.92 Balance 1100 / 1300 1322.92 / 1322.92 Lab / Micro Data 10/28/25 05:47 10/28/25 05:47 Labs: Laboratory Results - last 24 hr 10/27/25 13:26: WBC 19.2 H, RBC 5.30, Hgb 15.4, Hct 45.8, MCV 86.4, MCH 29.1, MCHC 33.6, RDW Std Deviation 38.9, RDW Coeff of Seth 12.4, Plt Count 277, MPV 10.0, Immature Gran % (Auto) 0.400, Neut % (Auto) 90.6 H, Lymph % (Auto) 4.4 L, Cloud % (Auto) 4.4, Eos % (Auto) 0.0, Baso % (Auto) 0.2, Absolute Neuts (auto) 17.4 H, Absolute Lymphs (auto) 0.85, Nucleated RBC % 0, Sodium 140, Potassium 4.4, Chloride 101, Carbon Dioxide 26.3, Anion Gap 13, BUN 17, Creatinine 1.12, Estim Creat Clear Calc 103.19, Est GFR (MDRD) Non-Af 81, BUN/Creatinine Ratio 14.7, Glucose 164 H, Calcium 9.7, Total Bilirubin 0.73, AST 18, ALT 21, Alkaline Phosphatase 70, Total Protein 7.9, Albumin 4.8, Globulin 3.2, Albumin/Globulin Ratio 1.5, Lipase 22 10/28/25 05:47: WBC 14.6 H, RBC 4.36 L, Hgb 12.8 L, Hct 38.6 L, MCV 88.5, MCH 29.4, MCHC 33.2, RDW Std Deviation 41.1, RDW Coeff of Esth 12.8, Plt Count 182, MPV 10.6, Immature Gran % (Auto) 0.500, Neut % (Auto) 79.4 H, Lymph % (Auto) 12.4 L, Cloud % (Auto) 7.5, Eos % (Auto) 0.0, Baso % (Auto) 0.2, Absolute Neuts (auto) 11.6 H, Absolute Lymphs (auto) 1.81, Nucleated RBC % 0, Sodium 138, Potassium 3.8, Chloride 104, Carbon Dioxide 21.0, Anion Gap 13, BUN 17, Creatinine 1.19, Estim Creat Clear Calc 98.67, Est GFR (MDRD) Non-Af 75, BUN/Creatinine Ratio 14.2, Glucose 144 H, Calcium 8.2 Radiography Diagnostic Testing: Radiology Impression Abdomen/Pelvis CT 10/27/25 17:29 IMPRESSION: Acute appendicitis. Reading Location: [facility] Physical Exam GI GI Narrative: Abdomen- soft, tenderness in the right lower quadrant. Incisions c/d/i. No erythema or infection noted. Assessment & Plan Assessment/Plan (1) Acute appendicitis: PLAN: I am following this patient in conjunction with Dr. Winslow. He has independently evaluated this patient. Labs reviewed. WBC decreased. Consider discharge later today Charges/Coding Visit Charges Inpatient E&M: 65786 Subs Hosp L1 (post-op; no charge)
[2025-10-28 11:00] VITALS: BP 129/62; PULSE 78; RESP 16; TEMP 37.2; O2SAT 96
--- NOTE | 2025-10-28 12:14 | PCM.DC ---
Discharge Instructions DC O2, CPAP, BIPAP needs Home O2 Discharge instructions: No Dressing / Incision Discharge Activity: May Not Drive (3-5 days or while taking narcotic pain medication) and May Not Shower (48 hours) Lifting Restrictions: 15 pounds for 2 weeks Dressing / Incision Call your doctor if your incision/area has: Continuous Slow Oozing, Sudden Increased Bleeding, Increased Pain/ Swelling, Increased Redness, Foul Smelling Discharge and Swelling at the incision site Call your doctor if you observe: Fever of 101 or Higher Suture Line Care: Avoid Pulling/Pushing and Avoid Pinching/Bending Remove Dressing in: 3 days Cleanse incision/area with: Soap & Water (in 48 hours) Follow Up Care Please Follow Up With: Allan Winslow MD When: Please contact our office at [phone], option #2 to schedule a 2 week follow-up. Test Results: Test results from this visit will be discussed in further detail at your follow-up appointment, if applicable. Discharge Plan Admission Admit Date/Time: 10/27/25 21:25 Primary Reason for Your Visit: Appendicitis Attending Provider: Allan Winslow Primary Care Provider: Care Physician,No Primary Instructions Additional Instructions / Restrictions: Appendectomy Diet ? Start light with soups and soft bland foods. You may advance diet as tolerated. Activity ? You may drive in 3-5 days but not while taking narcotic pain medication. ? I encourage walking. You may go up steps, one at a time. ? Do not swim or use hot tubs for 2 weeks. ? For comfort, you may use warm compresses or ice as needed for 15-20 minutes at a time. Lifting ? You may lift up to 15 pounds for 2 weeks. Dressings/Incision ? You may shower OVER your plastic dressings ? Do NOT tub bathe for 1 week ? Leave plastic dressings on for 3 days. ? When plastic dressings are removed, you will find steri-strips. It is okay to continue showering with them in place, pat them dry. ? You may remove steri-strips after 1 week. We recommend getting them soaking wet for easier removal. Medications ? Anesthesia used during surgery and pain medications may cause constipation. I recommend initiating on the day of surgery a fiber supplement like, Metamucil, Citrucel, FiberCon, Benefiber, or a generic form of these medications. 1 heaping tablespoon in water daily. You may continue to utilize any bowel regimen or oral laxatives that you routinely take. ? As long as you are not intolerant to Tylenol, acetaminophen, ibuprofen, Motrin, Advil, Aleve, or similar medications, I would recommend transitioning to these [id number] medicines as soon as possible instead of continued use of narcotic pain medication. Follow up ? You should call [facility] soon after surgery, at [phone] option 2 to make a follow up appointment for 14 days after your surgery. Discharge Orders/Prescriptions Prescriptions: New acetaminophen 325 mg Tablet 650 mg PO Q6H PRN PRN (Reason: Pain 1-10 Or Fever) Qty: 0 0RF oxycodone 5 mg Tablet 5 mg PO Q6H PRN PRN (Reason: Pain Score 6-10) 3 Days Qty: 10 0RF Continued ibuprofen 200 mg capsule 200 mg PO Q6H PRN (Reason: pain) Referrals / Follow Up: Vilma Potts MD [Med Staff - Community Relations Police Lieutenant, Internal Medicine - [facility]] Allan Winslow MD [Med Staff - Active Staff, General Surgery] - Within 2 Weeks Disposition Disposition (needs filled in before D/C Order can be placed): Home, Self Care
[2025-10-28 16:09] VITALS: BP 118/62; PULSE 75; RESP 16; TEMP 36.7; O2SAT 97
== END 2025-10-28 16:13 | disposition home or self-care (01) ==
LOC: ED 18:23 → SDC 19:33 → ACINP 20:00 → MS3 20:26 → SDC 22:05 → MS3 22:05
PROVIDERS: Admitting Provider Surgery; Emergency Provider Emergency Medicine; Visit Provider Surgery
PROC: 0DTJ4ZZ Resection of Appendix, Percutaneous Endoscopic Approach (ICD-10-PCS; CPT 44970; principal; 2025-10-27 20:00)
DX: K35.80 Unspecified acute appendicitis (principal); K40.90 Unilateral inguinal hernia, without obstruction or gangrene, not specified as recurrent; E66.9 Obesity, unspecified; Z68.35 Body mass index [BMI] 35.0-35.9, adult
CPT/HCPCS: 44970; 00840; 36415; 74177; 80048; 80053; 83690; 85025; 88304; 96361; 96365; 96366; 96375; 99221; 99284; Q9967; A4216; G0378; J2405